=== PATIENT | female | born 1970 | race Caucasian/White ===

== ENCOUNTER → 2016-12-22 | Outpatient (CLI) | payer OTHER ==
--- NOTE | 2016-12-23 08:52 | MM ---
Reason for exam: screening (asymptomatic). Last mammogram was performed 2 years and 5 months ago. History: Patient history of other cancer. Physical Findings: A clinical breast exam by your physician is recommended on an annual basis and results should be correlated with mammographic findings. MG Screening Mammo w CAD Bilateral CC and MLO view(s) were taken. Prior study comparison: August 02, 2014, bilateral MG screening mammo w CAD. June 12, 2011, mammogram, performed at [facility]. The breast tissue is heterogeneously dense. This may lower the sensitivity of mammography. Finding: There are typically benign calcifications in the right breast. No significant changes in finding since August 02, 2014 and June 12, 2011. ASSESSMENT: Benign, BI-RAD 2 RECOMMENDATION: Routine screening mammogram of both breasts in 1 year.
== END | disposition home or self-care (01) ==
LOC: RADMAMWWP 11:17
PROVIDERS: ATTEND Internal Medicine
DX: Z12.31 Encounter for screening mammogram for malignant neoplasm of breast (principal)

== ENCOUNTER → 2017-01-05 | Outpatient (CLI) | payer OTHER ==
--- NOTE | 2017-01-05 09:38 | US ---
EXAMINATION TYPE: US abdomen complete DATE OF EXAM: 01/05/2017 9:22 AM COMPARISON: No previous CLINICAL HISTORY: ABD Pain R10.84. Irregular bowel movements, abdomen pressure EXAM MEASUREMENTS: Liver Length: 17.2 cm Gallbladder Wall: 0.2 cm CBD: 0.4 cm Spleen: 10.1 cm Right Kidney: 11.1 x 3.9 x 4.3 cm Left Kidney: 10.6 x 5.4 x 4.5 cm FINDINGS: The liver is homogenous but measures 17 cm. The intrahepatic portion of the IVC and proximal abdomin al aorta are within normal limits. There is multiple hyperechoic nonshadowing foci within the gallbladder. Common bile duct is unremark able. Pancreas is limited by bowel gas. The visualized portions of the pancreas are homogenous. The spleen is unremarkable. Kidneys are symmetric and free of hydronephrosis. No renal lesions are seen. IMPRESSION: 1. Findings involving the gallbladder likely represent gallbladder polyps. Adherent nonshadowing tiny stones less likely. 2. Borderline to mild hepatomegaly.
== END | disposition home or self-care (01) ==
LOC: RADUSWWP 08:54
PROVIDERS: ATTEND Internal Medicine
DX: R16.0 Hepatomegaly, not elsewhere classified (principal); R10.84 Generalized abdominal pain
CPT/HCPCS: 76700

== ENCOUNTER → 2017-02-04 | Outpatient (CLI) | payer OTHER ==
--- NOTE | 2017-02-05 08:49 | XR ---
EXAMINATION TYPE: XR chest 2V DATE OF EXAM: 02/04/2017 3:57 PM COMPARISON: None TECHNIQUE: PA and lateral views submitted. HISTORY: Cough FINDINGS: The lungs are clear and there is no pneumothorax, pleural effusion, or focal pneumonia. Degenerativ e change of the spine. IMPRESSION: 1. No acute process.
== END | disposition home or self-care (01) ==
LOC: RADXRYALE 15:27
PROVIDERS: ATTEND Internal Medicine
DX: R05 Cough (principal)
CPT/HCPCS: 71020

== ENCOUNTER → 2017-03-12 | Outpatient (CLI) | payer OTHER ==
--- NOTE | 2017-03-12 15:24 | MR ---
MR brain without contrast HISTORY: Migraine without aura, G 43.009 Multiplanar multisequence imaging through the brain No comparisons There is no restricted diffusion. There is no hemorrhage or hydrocephalus. Brain signal is maintained . There are normal vascular flow voids. Cerebellopontine angles, corpus callosum, pituitary, cervical medullary junction are normal. Some mild inflammatory change noted in the temporal bone on the right and maxillary sinuses. The orbits show symmetric appearance. IMPRESSION: No abnormality evident to account for patient's symptoms.
== END | disposition home or self-care (01) ==
LOC: RADMRIMAIN 13:32
PROVIDERS: ATTEND Psychiatry & Neurology Neurology
DX: G43.009 Migraine without aura, not intractable, without status migrainosus (principal)
CPT/HCPCS: 70551

== ENCOUNTER → 2017-05-19 | Outpatient (CLI) | payer OTHER ==
--- NOTE | 2017-05-19 17:00 | US ---
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 TECHNIQUE: Multiple sonographic images of the thyroid gland are obtained. FINDINGS: Right Lobe: 4.9 x 2.0 x 2.1 cm Overall Parenchyma: homogenous Left Lobe: 5.2 x 1.9 x 2.3 cm Overall Parenchyma: heterogeneous Isthmus Thickness: 0.5 cm NODULES RIGHT: # of nodules measured on right: 1 1. 2.0 X 1.3 x 1.7 cm hypoechoic solid nodule at the lower pole with well-defined margins . This n odule is wider than tall and shows intranodular vascularity. Prior size: 1.7 x 1.2 x 1.9 cm LEFT: # of nodules measured on left: 0. The small nodule previously seen on the left side is not seen today. ISTHMUS: # of nodules measured in the isthmus: 1 1. 0.5 X 0.5 x 0.5 cm hypoechoic nodule at the right isthmus with well-defined margins; . This nod ule is wider than tall and shows intranodular vascularity. Prior size: no prior Bilateral neck scanned, no evidence of lymphadenopathy. IMPRESSION: 1. Borderline thyromegaly. 2. Dominant 2.0 x 1.7 cm solid nodule in the right lobe previously measured 1.9 x 1.7 cm, not signifi cantly changed. 3. A new 5 mm nodule in the right thyroid isthmus. This can be followed. 4. The previous nodule on the left side is no longer seen.
--- NOTE | 2017-05-19 17:09 | XR ---
EXAMINATION TYPE: XR knee limited RT DATE OF EXAM: 05/19/2017 COMPARISON: NONE HISTORY: 46-year-old female knee abrasion, pain and swelling since fall 6 days ago. TECHNIQUE: 2 views FINDINGS: There may be mild narrowing of medial compartment joint space. Extensor mechanism is intact. There is anterior soft tissue swelling overlying the patella and quadriceps tendon. No acute fracture, sublux ation, or dislocation. IMPRESSION: 1. Anterior soft tissue contusion overlying the patella and quadriceps tendon. 2. No underlying joint effusion or acute osseous abnormality seen.
== END | disposition home or self-care (01) ==
LOC: RADUSWWP 16:18
PROVIDERS: ATTEND Internal Medicine
DX: E01.0 Iodine-deficiency related diffuse (endemic) goiter (principal); E04.2 Nontoxic multinodular goiter; S80.01XA Contusion of right knee, initial encounter; X58.XXXA Exposure to other specified factors, initial encounter
CPT/HCPCS: 76536

== ENCOUNTER → 2017-06-17 | Outpatient (CLI) | payer OTHER ==
--- NOTE | 2017-06-17 16:39 | BD ---
EXAMINATION TYPE: MG DEXA axial skeleton. DATE OF EXAM: 06/17/2017 COMPARISON: NONE CLINICAL HISTORY: 46-year-old female screening for osteoporosis Height: 5 FT 4 IN Weight: 187 FRAX RISK QUESTIONS: Alcohol (3 or more units per day): NO Family History (Parent hip fracture): NO Glucocorticoids (More than 3mos): NO (Ex: prednisone, prednisolone, methylprednisolone, dexamethasone, and hydrocortisone). History of Fracture in Adulthood: NO Secondary Osteoporosis: 1. Type 1 Diabetes: NO 2. Hyperthyroidism: NO 3. Menopause before 45: YES 4. Malnutrition: NO 5. Chronic liver disease: NO Rheumatoid Arthritis: NO Current Tobacco Use: YES RISK FACTORS HISTORY OF: Family History of Osteoporosis: YES Active: YES Postmenopausal woman: AGE 44 MEDICATIONS: Additional Medications: MIGRAINE MEDS, LOSARTIN, OTC ALLERGY MEDS, Additional History: EXAM MEASUREMENTS: Bone mineral densitometry was performed using the [employer] System. Bone mineral density as measured about the Lumbar spine is: ----- L1-L4(G/cm2): 1.204 T Score Values are as follows: ----- L2: 0.0 ----- L3: 0.6 ----- L4: -0.5 ----- L1-L4: 0.2 BASELINE Bone mineral density about the R hip (g/cm2): 0.909 Bone mineral density about the L hip (g/cm2): 0.973 T Score values are as follows: -----R Neck: -0.9 -----L Neck: -0.5 -----R Total: -0.5 -----L Total: -0.2 BASELINE IMPRESSION: Normal (Values between +1 and -1 indicate normal bone mass). Consider repeating this study in 5 year s or sooner if there is some new clinical indication. NOTE: T-SCORE=SD OF THE YOUNG ADULT MEAN.
== END | disposition home or self-care (01) ==
LOC: RADBDWWP 15:27
PROVIDERS: ATTEND Internal Medicine Rheumatology
DX: Z13.820 Encounter for screening for osteoporosis (principal)
CPT/HCPCS: 77080

== ENCOUNTER 2017-08-07 07:35 | Day surgery (SDC) | payer OTHER ==
[2017-08-06 09:56] VITALS: BMI 32.2
[~2017-08-07 07:35] MED LIST: LACTATED RINGERS 1,000 ML IV SCH; LIDOCAINE 1% 20 ML VIAL (10MG/ML) FOR IV START INTRADERMA PRN
[2017-08-07 07:58] VITALS: TEMP 98.3
[2017-08-07] MEDS ORDERED: LIDOCAINE 1% INJ 10MG/ML (20 ML MDV) ONE (08:06)
[2017-08-07] MEDS ORDERED: PROPOFOL 10 MG/ML 20 ML VIAL IV ONE (08:06)
[2017-08-07] MEDS ORDERED: ONDANSETRON 4 MG/2 ML VIAL ONE (08:06)
--- NOTE | 2017-08-07 08:28 | P.OP ---
Date of Procedure: 08/07/17 Preoperative Diagnosis: Change in bowel habits with the recent constipation no diarrhea. Postoperative Diagnosis: Fairly normal colonoscopy. Probably irritable bowel syndrome. Procedure(s) Performed: Colonoscopy Anesthesia: MAC Surgeon: Gary Ordonez Estimated Blood Loss (ml): 0 Pathology: none sent Condition: stable Disposition: same day Indications for Procedure: Change in bowel habits with recent the constipation to the point where she wouldn't have a bowel movement for a week at a time. Had extensive medical workup that was essentially negative. Since being seen in the office she's had the loose stools almost daily. Abdominal symptoms have mostly resolved the in terms of discomfort . Operative Findings: Fairly normal colonoscopy. No polyps neoplasms or any mucosal abnormalities were found. No evidence of inflammatory condition of the bowel was significant diverticulosis. Description of Procedure: Informed consent was obtained the procedure having being explained to the patient including potential complication particular bleeding and perforation. She understood and agree to proceed. Procedure with the patient in the left lateral position rectal digital examination was normal there no palpable masses. The video colonoscope was inserted transanally and advanced all the way to the cecum which was entered without visualized. Colon was somewhat tortuous. The mucosa were thoroughly examined. No polyps neoplasms or any mucosal abnormalities were found. The suspect patient has irritable bowel syndrome. Recommendation. High-fiber diet the if she gets constipated again. May benefit from a fiber supplement daily to regular regulate her stools. At her age don't think follow-up colonoscopy is indicated for about 10 years or so for screening purposes.
[2017-08-07 08:45] VITALS: PULSE 76
[2017-08-07 08:58] VITALS: BP 140/93; RESP 16
== END 2017-08-07 09:24 | disposition home or self-care (01) ==
LOC: ORWHC2ENDO 07:35
PROVIDERS: ATTEND Surgery
DX: K59.00 Constipation, unspecified (principal); K21.9 Gastro-esophageal reflux disease without esophagitis; Q43.8 Other specified congenital malformations of intestine; I10 Essential (primary) hypertension; F17.210 Nicotine dependence, cigarettes, uncomplicated; Z79.899 Other long term (current) drug therapy; Z88.1 Allergy status to other antibiotic agents
CPT/HCPCS: 45378; J2405; J2001; J2704

== ENCOUNTER 2017-09-24 19:59 | Emergency (ER) | payer OTHER ==
[2017-09-24] MEDS ORDERED: MAG HYDROX/AL HYDROX/SIMETH 30 ML, HYOSCYAMINE ELIXIR 10 ML, CIMETIDINE HCL 300 MG, LID... PO STA ×4 (20:47)
[2017-09-24 21:08] LABS: Appearance,Urine Clear (Clear); Bilirubin,Urine Negative (Negative); Glucose,Urine (UA) Negative (Negative); Ketones,Urine Negative (Negative); Leukocyte Esterase,Urine Negative (Negative); Nitrite,Urine Negative (Negative); PH, Urine 5.5 (5.0-8.0); Protein,Urine Negative (Negative); Specific Gravity,Urine 1.003 (1.001-1.035); UA Billing (MACRO vs. MICRO) CHEM; Urobilinogen,Urine <2.0 mg/dL (<2.0)
[2017-09-24 21:20] LABS: Basophils # (A) 0.1 k/uL (0-0.2); Basophils % (A) 1 %; CH 30.9; CHCM 32.3; Eosinophils # (A) 0.1 k/uL (0-0.7); Eosinophils % (A) 1 %; HDW 2.24; HGB 16.3 gm/dL (11.4-16.0); Luc # (Auto) 0.05; Luc % (Auto) 1; Lymphocytes # (A) 1.9 k/uL (1.0-4.8); Lymphocytes % (A) 20 %; MCH 30.8 pg (25.0-35.0); MCV 96.2 fL (80.0-100.0); Mean Platelet Volume 7.7; Monocytes # (A) 0.5 k/uL (0-1.0); Monocytes % (A) 5 %; Neutrophils # (A) 6.9 k/uL (1.3-7.7); Neutrophils % (A) 73 %; RDW 13.7 % (11.5-15.5); WBC 9.5 k/uL (3.8-10.6); WBC (Perox) 9.49
[2017-09-24 21:21] LABS: ALT 35 U/L (9-52); AST 30 U/L (14-36); Alkaline Phosphatase 68 U/L (38-126); Amylase 58 U/L (30-110); Anion Gap 14 mmol/L; Blood Urea Nitrogen 5 mg/dL (7-17); Calcium 10.5 mg/dL (8.4-10.2); Carbon Dioxide 23 mmol/L (22-30); Chloride 102 mmol/L (98-107); Glucose 83 mg/dL (74-99); Non-African American GFR(MDRD) 53 (>60 ml/min/1.73 sqM); Potassium 4.1 mmol/L (3.5-5.1); Sodium 139 mmol/L (137-145); Total Bilirubin 0.3 mg/dL (0.2-1.3); Total Protein 7.6 g/dL (6.3-8.2)
--- NOTE | 2017-09-24 21:24 | ED ---
General Adult HPI - General Chief complaint: Abdominal Pain Stated complaint: Abd pain Time Seen by Provider: 09/24/17 20:12 Source: patient, RN notes reviewed Mode of arrival: ambulatory Limitations: no limitations - History of Present Illness Initial comments: 46-year-old female presents to the emergency department with a chief complaint of abdominal bloating and acid reflux. She states she's had this for about a 1 year. She's been to her doctor who is never done anything about it. She states that she has sensation going all the way up her throat that it's hard to swallow she has terrible heartburn she feels bloated she states she hasn't really struggling with constipation or diarrhea. She states that she just does not know else to go her doctor shot was seen to her so she is hoping maybe we could figure this out. There has been no fever chills with this. She denies any nausea or vomiting. States that she feels more bloated than pain.Patient denies any recent fever, chills, shortness of breath, chest pain, back pain, abdominal pain, nausea vomiting, numbness or tingling, dysuria or hematuria, constipation or diarrhea, headaches or visual changes, or any other current symptoms. - Related Data Home Medications Medication Instructions Recorded Confirmed [id number] 2 tab PO Q6H PRN 08/06/17 09/24/17 [Excedrin] Cetirizine HCl/Pseudoephedrine 1 tab PO DAILY 08/06/17 09/24/17 [Zyrtec-D Tablet] Losartan Potassium [Cozaar] 50 mg PO DAILY 08/06/17 09/24/17 Biotin 10,000 mcg PO DAILY 09/24/17 09/24/17 Citrucel Tab 1 - 2 tab PO DAILY 09/24/17 09/24/17 Iodine Plus-2 2 tab PO DAILY 09/24/17 09/24/17 Tumeric Curcumin 1 tab PO Q48H 09/24/17 09/24/17 Allergies Allergy/AdvReac Type Severity Reaction Status Date / Time latex Allergy Rash/Hives Verified 09/24/17 20:31 cephalexin [From Keflex] AdvReac "gives me Verified 09/24/17 20:31 bladder infections" [place] And Derivatives AdvReac Nausea & Verified 09/24/17 20:31 Vomiting pain medication Allergy Unknown Uncoded 09/24/17 20:[address] "makes Uncoded 09/24/17 20:18 me very cold,nausea and vomiting,have shakes" Review of Systems ROS Statement: Those systems with pertinent positive or pertinent negative responses have been documented in the HPI. ROS Other: All systems not noted in ROS Statement are negative. Past Medical History Past Medical History: Cancer, Fibromyalgia, GERD/Reflux, Hypertension, Skin Disorder Additional Past Medical History / Comment(s): constipated with bleeding with diarrhea x1 day and bloating,bronchitis,heart valve problem,"clear liquid sores on top of but", May 2017 steroids,Hx cervical CA-frozen procedure remove History of Any Multi-Drug Resistant Organisms: None Reported Past Surgical History: Bladder Surgery, Section, Orthopedic Surgery Additional Past Surgical History / Comment(s): sinus polyps removed,rot cuff Past Anesthesia/Blood Transfusion Reactions: Motion Sickness, Postoperative Nausea & Vomiting (PONV) Additional Past Anesthesia/Blood Transfusion Reaction / Comment(s): states "it makes me very cold,have nausea and vomiting,and have shakes" Past Psychological History: No Psychological Hx Reported Smoking Status: Current every day smoker Past Alcohol Use History: Occasional Past Drug Use History: None Reported - Past Family History Mother Family Medical History: Cancer Additional Family Medical History / Comment(s): cervical CA Father Family Medical History: Cancer Additional Family Medical History / Comment(s): lung General Exam - General Exam Comments Initial Comments: General: The patient is awake and alert, in no distress, and does not appear acutely ill. Eye: Pupils are equal, round and reactive to light, extra-ocular movements are intact; there is normal conjunctiva bilaterally. No signs of icterus. Ears, nose, mouth and throat: There are moist mucous membranes and no oral lesions. Neck: The neck is supple, there is no tenderness. Cardiovascular: There is a regular rate and rhythm. No murmur, rub or gallop is appreciated. Respiratory: Lungs are clear to auscultation, respirations are non-labored, breath sounds are equal. No wheezes, stridor, rales, or rhonchi. Gastrointestinal: Soft, non-distended, non-tender abdomen without masses or organomegaly noted. There is no rebound or guarding present. No CVA tenderness. Bowel sounds are unremarkable. Back: There is no tenderness to palpation in the midline. There is no obvious deformity. No rashes noted. Musculoskeletal: Normal ROM, no tenderness, There is no pedal edema. There is no calf tenderness or swelling. Sensation intact. Pulses equal bilaterally 2+. Neurological: CN II-XII intact, There are no obvious motor or sensory deficits. Coordination appears grossly intact. Speech is normal. Skin: Skin is warm and dry and no rashes or lesions are noted. Psychiatric: Cooperative, appropriate mood & affect, normal judgment. Limitations: no limitations Course Vital Signs 09/24/17 09/24/17 09/24/17 20:18 21:23 21:41 Temperature 97.6 F 98.0 F Pulse Rate 100 86 Respiratory 18 18 Rate Blood Pressure 189/106 179/97 O2 Sat by Pulse 98 97 Oximetry Medical Decision Making - Medical Decision Making 46-year-old female presents for abdominal bloating at this time patient's CAT scan lab work is been reviewed. There is no white count there is suspicion for possible colitis. We discussion follow-up with GI for this. This time we'll not to any antibiotics due to no white count no abdominal pain. At this time we did discuss return for hours all questions. Patient stated that she understood and she is. This plan. She will be discharged. - Lab Data Result diagrams: 09/24/17 20:20 09/24/17 20:20 Lab Results 09/24/17 09/24/17 09/24/17 Range/Units 20:20 20:20 20:20 WBC 9.5 (3.8-10.6) k/uL RBC 5.30 (3.80-5.40) m/uL Hgb 16.3 H (11.4-16.0) gm/dL Hct 51.0 H (34.0-46.0) % MCV 96.2 (80.0-100.0) fL MCH 30.8 (25.0-35.0) pg MCHC 32.0 (31.0-37.0) g/dL RDW 13.7 (11.5-15.5) % Plt Count 414 (150-450) k/uL Neutrophils % 73 % Lymphocytes % 20 % Monocytes % 5 % Eosinophils % 1 % Basophils % 1 % Neutrophils # 6.9 (1.3-7.7) k/uL Lymphocytes # 1.9 (1.0-4.8) k/uL Monocytes # 0.5 (0-1.0) k/uL Eosinophils # 0.1 (0-0.7) k/uL Basophils # 0.1 (0-0.2) k/uL Sodium 139 (137-145) mmol/L Potassium 4.1 (3.5-5.1) mmol/L Chloride 102 (98-107) mmol/L Carbon Dioxide 23 (22-30) mmol/L Anion Gap 14 mmol/L BUN 5 L (7-17) mg/dL Creatinine 1.10 H (0.52-1.04) mg/dL Est GFR (MDRD) Af Amer >60 (>60 ml/min/1.73 sqM) Est GFR (MDRD) Non-Af 53 (>60 ml/min/1.73 sqM) Glucose 83 (74-99) mg/dL Calcium 10.5 H (8.4-10.2) mg/dL Total Bilirubin 0.3 (0.2-1.3) mg/dL AST 30 (14-36) U/L ALT 35 (9-52) U/L Alkaline Phosphatase 68 (38-126) U/L Total Protein 7.6 (6.3-8.2) g/dL Albumin 4.8 (3.5-5.0) g/dL Amylase 58 (30-110) U/L Lipase 87 (23-300) U/L Urine Color Urine Appearance (Clear) Urine pH (5.0-8.0) Ur Specific [place] (1.001-1.035) Urine Protein (Negative) Urine Glucose (UA) (Negative) Urine Ketones (Negative) Urine Blood (Negative) Urine Nitrite (Negative) Urine Bilirubin (Negative) Urine Urobilinogen (<2.0) mg/dL Ur Leukocyte Esterase (Negative) Urine HCG, Qual Not Detected (Not Detectd) 09/24/17 Range/Units 20:20 WBC (3.8-10.6) k/uL RBC (3.80-5.40) m/uL Hgb (11.4-16.0) gm/dL Hct (34.0-46.0) % MCV (80.0-100.0) fL MCH (25.0-35.0) pg MCHC (31.0-37.0) g/dL RDW (11.5-15.5) % Plt Count (150-450) k/uL Neutrophils % % Lymphocytes % % Monocytes % % Eosinophils % % Basophils % % Neutrophils # (1.3-7.7) k/uL Lymphocytes # (1.0-4.8) k/uL Monocytes # (0-1.0) k/uL Eosinophils # (0-0.7) k/uL Basophils # (0-0.2) k/uL Sodium (137-145) mmol/L Potassium (3.5-5.1) mmol/L Chloride (98-107) mmol/L Carbon Dioxide (22-30) mmol/L Anion Gap mmol/L BUN (7-17) mg/dL Creatinine (0.52-1.04) mg/dL Est GFR (MDRD) Af Amer (>60 ml/min/1.73 sqM) Est GFR (MDRD) Non-Af (>60 ml/min/1.73 sqM) Glucose (74-99) mg/dL Calcium (8.4-10.2) mg/dL Total Bilirubin (0.2-1.3) mg/dL AST (14-36) U/L ALT (9-52) U/L Alkaline Phosphatase (38-126) U/L Total Protein (6.3-8.2) g/dL Albumin (3.5-5.0) g/dL Amylase (30-110) U/L Lipase (23-300) U/L Urine Color Colorless Urine Appearance Clear (Clear) Urine pH 5.5 (5.0-8.0) Ur Specific [place] 1.003 (1.001-1.035) Urine Protein Negative (Negative) Urine Glucose (UA) Negative (Negative) Urine Ketones Negative (Negative) Urine Blood Negative (Negative) Urine Nitrite Negative (Negative) Urine Bilirubin Negative (Negative) Urine Urobilinogen <2.0 (<2.0) mg/dL Ur Leukocyte Esterase Negative (Negative) Urine HCG, Qual (Not Detectd) - Radiology Data Radiology results: report reviewed, image reviewed Disposition Clinical Impression: Dehydration, Colitis, Elevated creatine kinase, Hypertension Disposition: HOME SELF-CARE Condition: Stable Instructions: Colitis (ED) Additional Instructions: Please use medication as discussed. Please follow up with family doctor if symptoms have not improved over the next two days. Please return to the emergency room if your symptoms increase or worsen or for any other concerns. Referrals: Lexie Deleon MD [Primary Care Provider] - 1-2 days Kellie Stout MD [STAFF PHYSICIAN] - 1-2 days Time of Disposition: 22:20
[2017-09-24 21:35] VITALS: PULSE 86
--- NOTE | 2017-09-24 21:43 | XR ---
EXAMINATION TYPE: XR abdomen 2V , 3 VIEWS DATE OF EXAM ORDERED: 09/24/2017 HISTORY: Pain. COMPARISON: None. FINDINGS: The lung bases are clear. Within the abdomen, the abdominal gas pattern is within normal limits. There is no evidence of obstru ction or free air. There are multiple air-fluid levels. There are phleboliths within the pelvis. IMPRESSION: FINDINGS MOST CONSISTENT WITH GENERALIZED ILEUS.
--- NOTE | 2017-09-24 22:15 | CT ---
EXAMINATION TYPE: CT abdomen pelvis wo con DATE OF EXAM: 09/24/2017 COMPARISON: NONE HISTORY: Abdominal pain and bloating x [address] DLP: 481.60 mGycm Automated exposure control for dose reduction was used. TECHNIQUE: Helical acquisition of images was performed from the lung bases through the pelvis. FINDINGS: Lung bases are clear of consolidation. There is no pleural effusion. There is some mild linear densit y at the left lung base consistent with scarring or subsegmental atelectasis. Liver and spleen appear normal. Bile ducts are not dilated. Gallbladder appears normal. There is no adrenal mass. Kidneys of normal size and contour. There is no hydronephrosis. There is no retroperitoneal adenopathy. Bladder distends smoothly. Appendix appears normal. There is no sign of a pelvic mass. Uterus is retr overted. I see no bony destructive process. There is mild wall thickening involving the descending co jennifer and the proximal sigmoid colon. There is similar mild thickening of the distal transverse colon. There is no ascites. There is no free air. IMPRESSION: THERE IS MILD COLONIC WALL THICKENING THAT IS SUGGESTIVE OF NONSPECIFIC COLITIS. NO EVIDENCE OF ANY S IGNIFICANT DIVERTICULAR DISEASE.
[2017-09-24] MEDS ORDERED: cloNIDine HCL 0.1 MG TAB PO STA (22:50)
[2017-09-24 23:01] VITALS: RESP 20
[2017-09-24 23:37] VITALS: BP 154/84; TEMP 97.2
== END 2017-09-24 23:37 | disposition home or self-care (01) ==
LOC: EC 19:59
DX: E86.0 Dehydration (principal); R74.8 Abnormal levels of other serum enzymes; I10 Essential (primary) hypertension; F17.200 Nicotine dependence, unspecified, uncomplicated; Z85.41 Personal history of malignant neoplasm of cervix uteri; Z98.890 Other specified postprocedural states; Z88.1 Allergy status to other antibiotic agents; Z91.018 Allergy to other foods; Z88.4 Allergy status to anesthetic agent; Z88.6 Allergy status to analgesic agent; Z91.040 Latex allergy status; Z79.899 Other long term (current) drug therapy
CPT/HCPCS: 36415; 74020; 74176; 80053; 81003; 81025; 82150; 83690; 85025; 99284

== ENCOUNTER → 2017-10-06 | Outpatient (CLI) | payer OTHER ==
[2017-10-06 19:40] LABS: Gliadin AB IgA, Deaminated NEGATIVE (NEGATIVE); Gliadin AB IgG, Deaminated NEGATIVE (NEGATIVE); Gliadin AB IgG, Unit <0.4 U/mL; Tis Transglutaminase IgA Unit <0.5 AI; Tis Transglutaminase IgG Unit <0.8 U/mL
== END | disposition home or self-care (01) ==
LOC: LABWHC1 13:58
PROVIDERS: ATTEND Physician Assistant
DX: R11.0 Nausea (principal); R14.0 Abdominal distension (gaseous)
CPT/HCPCS: 36415; 83516; 86677

== ENCOUNTER 2017-11-03 08:58 | Day surgery (SDC) | payer OTHER ==
[2017-10-29 16:03] VITALS: BMI 29.3
[2017-11-03 09:22] VITALS: RESP 16; TEMP 97.9
[2017-11-03] MEDS: LACTATED RINGERS 1,000 ML IV SCH ×2 (09:22→11:00)
[2017-11-03] MEDS ORDERED: LIDOCAINE 1% INJ 10MG/ML (20 ML MDV) ONE (09:41)
[2017-11-03] MEDS ORDERED: PROPOFOL 10 MG/ML 20 ML VIAL IV ONE (09:41)
--- NOTE | 2017-11-03 10:06 | P.PCN ---
Date of Procedure: 11/03/17 Procedure(s) Performed: Procedure: Esophagogastroduodenoscopy and biopsy. Preoperative diagnosis: Epigastric pain and nausea. Postoperative diagnosis: 1. Small sliding hiatal hernia with low-grade distal esophagitis. 2. Mild antral gastritis. 3. Multiple biopsies obtained from the duodenum, antrum and esophagus. Preparation sedation: Was provided by anesthesia. Brief clinical history: The patient is a 46-year-old female who was evaluated in the office earlier this month regarding symptoms of epigastric pain and nausea. The patient has history of diarrhea, bloating and abdominal pain and has responded to anti-spasmodics with the working diagnosis of irritable bowel syndrome. Currently, she has 1 bowel movement every other day on the average. She has lost 15 pounds over the prior 6 months and has been experiencing dull ache in the epigastric area and intermittent nausea. She has been receiving Protonix and still gets heartburn and acid regurgitation for some time. This evaluation is to assess for esophagitis, complicated reflux disease, peptic ulcer disease or other pathology. Procedure: With the patient on her left lateral decubitus position and after informed consent and adequate sedation, I passed the Olympus-GIF 160 video upper endoscope through the cricopharyngeus down the esophagus. GE junction was around 38 cm from the incisors and there was a small sliding hiatal hernia. The distal esophagus showed a superficial linear erosion consistent with LA grade A distal esophagitis. There were no ulcers or strictures. No Argueta's esophagus. The endoscope was then passed into the stomach which was insufflated with air and inspected in detail including the retroflex view in the cardia. There was some minimal mottling and erythema in the antrum but no ulcers or erosions. Pyloric channel, duodenal bulb, post bulbar area and descending duodenum appeared within normal limits. Because of her symptoms, I obtained biopsies from the duodenum, antrum and esophagus then the endoscope was withdrawn. The patient tolerated the procedure well. Plan: The patient was reassured. She will follow-up with you as planned. She will follow-up in our office next month and we will keep you updated on her progress.
[2017-11-03] MEDS ORDERED: LABETALOL 5 MG/ML VIAL MDV IV ONE (11:04)
[2017-11-03 11:24] VITALS: PULSE 65
[2017-11-03 11:28] VITALS: BP 182/100
== END 2017-11-03 11:58 | disposition home or self-care (01) ==
LOC: ORWHC2ENDO 08:58
DX: K29.50 Unspecified chronic gastritis without bleeding (principal); K21.0 Gastro-esophageal reflux disease with esophagitis; K44.9 Diaphragmatic hernia without obstruction or gangrene; J45.909 Unspecified asthma, uncomplicated; I10 Essential (primary) hypertension; G43.909 Migraine, unspecified, not intractable, without status migrainosus; F17.200 Nicotine dependence, unspecified, uncomplicated; Z88.5 Allergy status to narcotic agent; Z88.1 Allergy status to other antibiotic agents; Z91.040 Latex allergy status; Z88.4 Allergy status to anesthetic agent; Z91.048 Other nonmedicinal substance allergy status; Z79.899 Other long term (current) drug therapy
CPT/HCPCS: 43239; 88305; 88342; J2001; J2704

== ENCOUNTER → 2018-06-07 | Outpatient (CLI) | payer OTHER ==
--- NOTE | 2018-06-07 23:10 | MR ---
EXAMINATION TYPE: MR mtine/lspine wo con DATE OF EXAM: 06/07/2018 COMPARISON: None HISTORY: 47-year-old female Neck/lower back pain, headaches, stiffness, bilateral upper extremity wea kness, left lower extremity radiculopathy TECHNIQUE: Multiplanar, multisequence imaging of the cervical spine followed by the lumbar spine is p erformed without IV contrast. FINDINGS: CERVICAL SPINE: Lobulated mucosal thickening within the sphenoid sinus. No craniocervical junction abnormalities, predental space widening, or prevertebral soft tissue swell ing. 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 Reversal of the normal cervical lordosis with grade 1 anterolisthesis at C7-T1. No suspicious bone marrow replacement though there is some sclerotic Modic type III endplate changes at C5-C6. Moderate to advanced disc/endplate degenerative change particularly from C4 through C7 levels with di sc space narrowing, disc desiccation, and disc osteophyte complex formation. Ligamentum flavum thickening is also present along these levels and there is scattered hypertrophic f acet and uncovertebral joint degenerative change. At C2-C3, there is bulging disc and facet degenerative change. Overall mild narrowing of the spinal c anal without cord contact or cord deformity she. No significant neuroforaminal stenosis. At C3-C4, congenitally fused segment, no significant spinal canal or neuroforaminal stenosis. At C4-C5, broad-based disc osteophyte complex with uncovertebral joint and facet degenerative change. Changes result in mild left neuroforaminal stenosis with moderate spinal canal stenosis. Prominent a butment in ventral flattening of the cervical cord. At C5-C6, broad-based disc osteophyte complex with uncovertebral joint and facet degenerative change. Changes result in severe bilateral neural foraminal stenosis and moderate to severe spinal canal jigna nosis. Abutment and flattening of both the dorsal and ventral cord with mild increased cord signal at this level. At C6-C7, broad-based disc osteophyte complex eccentric toward the left with uncovertebral joint and mild facet arthropathy. Changes result in moderate left neuroforaminal stenosis and overall mild spin al canal stenosis. At C7-T1, facet degenerative change with grade 1 anterolisthesis. No significant spinal canal stenosi s. No significant neuroforaminal stenosis. No prevertebral or paravertebral soft tissue abnormality seen. LUMBAR SPINE: Vertebral body heights are preserved. Grade 1 retrolisthesis at L1-L2 and L2-L3 secondary to hypertrophic facet arthropathy. Moderate disc desiccation L1-L2 and L2-L3 with a diffuse bulging discs. Facet arthropathy greatest in the mid to lower lumbar spine. Conus medullaris is normal. No suspicious bone marrow replacement. There is some mixed Modic type I and type II endplate changes anteriorly at L1-L2. At T12-L1, there is a small right paracentral protrusion without significant canal or foraminal steno sis. At L1-L2, there is diffuse disc bulge with grade 1 retrolisthesis. Minimal inferior foraminal narrowi ng on the left. No spinal canal stenosis. At L2-L3, mild bulging disc and facet degenerative change. Changes result in minimal inferior foramin al narrowing on both sides. There appears to be a left intraforaminal annular fissure that closely ap proaches, and may abut the traversing left L3 nerve root. At L3-L4, facet degenerative change without significant canal or foraminal stenosis. At L4-L5, facet degenerative change without significant canal or foraminal stenosis. At L5-S1, no significant canal or foraminal stenosis. COMBINED IMPRESSION: CERVICAL SPINE: 1. 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 2. CHANGES RESULT IN A MODERATE TO SEVERE SPINAL CANAL STENOSIS AT C5-C6 WITH CORD COMPRESSION AND SOCIATED MILD CORD EDEMA/MYELOPATHIC SIGNAL CHANGE. SEVERE BILATERAL NEUROFORAMINAL STENOSIS AT THIS LEVEL. 3. Moderate overall spinal canal stenosis at C4-C5. There is abutment and flattening of the ventral c ord at this level. 4. Mild overall spinal canal stenosis at C2-C3 and C6-C7. Moderate left neuroforaminal stenosis at C6 -C7. 5. Degenerative grade 1 anterolisthesis at C7-T1. LUMBAR SPINE: 1. Moderate degenerative disc disease especially from L1 through L3 levels with some associated mixed Modic type I and type II endplate change at L1-L2. Grade 1 retrolisthesis at both of these levels. 2. At L2-L3, there is diffuse disc bulge with a left-sided intraforaminal annular fissure. Disc mater ial closely approaches and may abut the traversing left L3 nerve root here. Minimal bilateral neurofo raminal narrowing on both sides at this level. 3. Facet arthropathy mid to lower lumbar spine.
== END | disposition home or self-care (01) ==
LOC: RADMRIMAIN 16:38
PROVIDERS: ATTEND Psychiatry & Neurology Neurology
DX: M48.02 Spinal stenosis, cervical region (principal); M99.71 Connective tissue and disc stenosis of intervertebral foramina of cervical region; M43.12 Spondylolisthesis, cervical region; M50.31 Other cervical disc degeneration, high cervical region; M46.92 Unspecified inflammatory spondylopathy, cervical region; M43.22 Fusion of spine, cervical region; M99.73 Connective tissue and disc stenosis of intervertebral foramina of lumbar region; M51.26 Other intervertebral disc displacement, lumbar region; M43.16 Spondylolisthesis, lumbar region; M51.36 Other intervertebral disc degeneration, lumbar region; M46.96 Unspecified inflammatory spondylopathy, lumbar region
CPT/HCPCS: 72141; 72148

== ENCOUNTER → 2018-09-02 | Outpatient (CLI) | payer OTHER ==
[2018-09-02 14:40] VITALS: BMI 30.7
== END | disposition home or self-care (01) ==
LOC: MNTWWP 13:09
PROVIDERS: ATTEND Psychiatry & Neurology Neurology
DX: E63.9 Nutritional deficiency, unspecified (principal)
CPT/HCPCS: 97802

== ENCOUNTER → 2018-09-02 | Outpatient (CLI) | payer OTHER ==
--- NOTE | 2018-09-02 13:16 | CT ---
EXAMINATION TYPE: DATE OF EXAM: 09/02/2018 COMPARISON: None HISTORY: Cervical spine compression. CT DLP: 1163 mGycm Contrast:Iso 300/100ml Unenhanced followed by contrast enhanced CT of the cervical spine was performed with bone and soft ti ssue window settings submitted. Coronal and sagittal reconstruction is obtained. C2-3: Within normal limits C3-4: Congenital fusion noted. No cervical stenosis or disc herniation identified. C4-5:Moderate degenerative disc space narrowing. Mild circumferential disc bulge greatest posteriorly . Hypertrophic changes posterocentral into the left with left foraminal encroachment noted. No eviden ce for central stenosis. C5-6: Severe degenerative disc space narrowing. Posterior disc bulge with partial encapsulating spur greatest posterior centrally and to the right. There is moderate central stenosis noted and cord cont act identified. Severe right foraminal encroachment and moderate left-sided foraminal encroachment no madyson. C6-7: Moderate degenerative disc space narrowing. Moderate posterior disc bulge with effacement of th e ventral thecal sac. Mild central stenosis difficult to exclude. Degenerative change of the cervical apophyseal joints resulting in moderate left-sided foraminal encroachment. C7-T1: Within normal limits. Alignment is anatomic. No fracture or subluxation. No pathologic enhancement identified. IMPRESSION: 1. Multilevel degenerative disc disease and spondylosis. 2. At least moderately severe canal stenosis at C5-6 with cord contact noted and cord compression anselmo pected. Consider MRI correlation. See above. 3. Varying degrees of foraminal encroachment. 4. Suspect mild central stenosis C6-7.
--- NOTE | 2018-09-02 15:09 | XR ---
EXAMINATION TYPE: XR chest 2V DATE OF EXAM: 09/02/2018 COMPARISON: Prior chest x-ray 02/04/2017 HISTORY: Presurgical testing TECHNIQUE: Frontal and lateral views of the chest are obtained. FINDINGS: There is no focal air space opacity, pleural effusion, or pneumothorax seen. The cardiac silhouette size is within normal limits. The osseous structures are remarkable for postop change th e left shoulder which are stable. Prominent lung volume may be indicative of underlying COPD. The aor ta is dense. IMPRESSION: No acute cardiopulmonary process.
== END | disposition home or self-care (01) ==
LOC: RADCTMAIN 12:19
PROVIDERS: ATTEND Neurological Surgery
DX: M48.02 Spinal stenosis, cervical region (principal); M50.321 Other cervical disc degeneration at C4-C5 level; M47.812 Spondylosis without myelopathy or radiculopathy, cervical region; Z01.818 Encounter for other preprocedural examination
CPT/HCPCS: 71046; 72127

== ENCOUNTER → 2018-11-23 | Outpatient (CLI) | payer OTHER ==
--- NOTE | 2018-11-24 07:58 | CT ---
EXAMINATION TYPE: CT chest w con DATE OF EXAM: 11/23/2018 COMPARISON: Prior chest x-ray September 02, 2018. HISTORY: Cough. CT DLP: 495 mGycm. Automated Exposure Control for Dose Reduction was Utilized. TECHNIQUE: CT scan of the thorax is performed following with IV Contrast, patient injected with 100m l mL of Isovue 300. FINDINGS: LUNGS: Mild bibasilar linear scarring and/or atelectasis is present. There is more focal scarring med ially right middle lobe abutting right heart border axial image 44 No suspicious focal consolidation or groundglass opacity is seen. There is no pleural effusion or pneumothorax seen bilaterally. No concerning parenchymal nodule or mass is present. The tracheobronchial tree is patent. MEDIASTINUM: There are no greater than 1 cm hilar or mediastinal lymph nodes. No cardiomegaly or pe ricardial effusion is seen. Main pulmonary artery measures 3.0 cm in diameter at bifurcation axial im age 25, CT findings suggesting underlying pulmonary artery hypertension. Adjacent ascending aorta melany sures 3.7 cm in diameter. Coronary artery calcification is present which is noted marker for coronary artery disease. There is suspected greater than 1 cm lower pole right thyroid nodule axial image 5. This correlates with ultrasound July 31, 2014. With 2.0 cm solid nodule noted. No significant in terval change in size. OTHER: A roughly 1 cm lesion anterior liver axial image 53 favors thin-walled cyst. Slight scoliotic curvature in the thoracic spine is present with mild multilevel spurring. IMPRESSION: No suspicious acute pulmonary process.
== END | disposition home or self-care (01) ==
LOC: RADCTMAIN 17:11
PROVIDERS: ATTEND Internal Medicine
DX: R05 Cough (principal)
CPT/HCPCS: 71260; Q9967

== ENCOUNTER → 2019-01-25 | Outpatient (CLI) | payer OTHER ==
--- NOTE | 2019-01-26 09:21 | XR ---
EXAMINATION TYPE: XR chest 2V DATE OF EXAM: 01/25/2019 COMPARISON: Prior chest x-ray 09/02/2018 HISTORY: Cough TECHNIQUE: Frontal and lateral views of the chest are obtained. FINDINGS: There are prominent lung volume suggesting underlying COPD. Postop change noted to the left shoulder. There is no focal air space opacity, pleural effusion, or pneumothorax seen. The cardiac silhouette size is within normal limits. The osseous structures are intact. IMPRESSION: No acute cardiopulmonary process.
== END | disposition home or self-care (01) ==
LOC: RADXRYALE 16:26
PROVIDERS: ATTEND Internal Medicine
DX: J98.01 Acute bronchospasm (principal)
CPT/HCPCS: 71046

== ENCOUNTER → 2019-02-08 | Outpatient (CLI) | payer OTHER ==
[2019-02-08 15:23] VITALS: BP 163/113; PULSE 104; RESP 18; TEMP 97.9; BMI 27.9
--- NOTE | 2019-02-08 16:56 | P.HPOB ---
History of Present Illness H&P Date: 02/08/19 Chief Complaint: The patient is here for routine gynecologic exam. This is a 48-year-old within the LMP of 2015. The patient is here to establish with this office. She states her last pelvic exam was about 2 years ago. She states she went through the menopausal change about 4 or 5 years ago. At this time she started having bad hot flashes at night. She has also noticed gradual increase in abdominal bloating without significant weight change. She states her abdomen looks much larger when she compares pictures from now and 4 years ago. She has also been experiencing difficulty sleeping, moodiness, difficulty with concentration, joint swelling, skin changes including dryness, hair loss and weak nails. She denies any postmenopausal bleeding. Review of Systems She denies any significant weight change in the past year, but has been experiencing bloating as in the HPI. She denies respiratory or cardiac problems. G.I.: she has had a long history of constipation. Past Medical History Past Medical History: Asthma, Cancer, Fibromyalgia, GERD/Reflux, Hypertension, Osteoarthritis (OA) Additional Past Medical History / Comment(s): HX MIGRAINES, heart valve problem, COLORBLIND, seasonal allergies. 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 She had cryotherapy of the cervix in the for cervical dysplasia. History of Any Multi-Drug Resistant Organisms: None Reported Past Surgical History: Bladder Surgery, Section, Orthopedic Surgery Additional Past Surgical History / Comment(s): sinus polyps removed as child, left rotator cuff, age 4 bladder sx. Colonoscopy with upper endoscopy 2017. Past Anesthesia/Blood Transfusion Reactions: Motion Sickness, Postoperative Nausea & Vomiting (PONV) Additional Past Anesthesia/Blood Transfusion Reaction / Comment(s): states "it makes me very cold,have nausea and vomiting,and have shakes" Past Psychological History: Anxiety Smoking Status: Current every day smoker (Half to one pack of cigarettes per day.) Past Alcohol Use History: Occasional (8 per month) Additional Past Alcohol Use History / Comment(s): started smoking at age 13, less than 1ppd Past Drug Use History: None Reported Additional History: She is and has not had a partner since approximately 2014. 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 - Past Family History Mother Family Medical History: Cancer Additional Family Medical History / Comment(s): cervical CA Father Family Medical History: Cancer, Hypertension Additional Family Medical History / Comment(s): lung CA. Paternal grandmother had cervical cancer. Medications and Allergies Home Medications Medication Instructions Recorded Confirmed Type [id number] 2 tab PO Q6H PRN 08/06/17 11/03/17 History [Excedrin] Cetirizine HCl/Pseudoephedrine 1 tab PO DAILY 08/06/17 11/03/17 History [Zyrtec-D Tablet] Losartan Potassium [Cozaar] 50 mg PO DAILY 08/06/17 11/03/17 History Tumeric Curcumin 1 tab PO Q48H 09/24/17 11/03/17 History PARoxetine [Paxil] 10 mg PO DAILY 10/29/17 11/03/17 History Pantoprazole Sodium [Protonix] 40 mg PO DAILY 10/29/17 11/03/17 History Trokendi 1 tab PO HS 10/29/17 History Albuterol Inhaler [Ventolin Hfa 1 - 2 puff INHALATION RT-Q6H 02/08/19 02/08/19 History Inhaler] Methylcellulose (with Sugar) 2 gm PO DIRECTED 02/08/19 02/08/19 History [Citrucel Powder] Allergies Allergy/AdvReac Type Severity Reaction Status Date / Time codeine Allergy Hallucinati Verified 02/08/19 15:25 [From Tylenol-Codeine #3] ons latex Allergy Rash/Hives Verified 02/08/19 15:25 cephalexin [From Keflex] AdvReac "gives me Verified 02/08/19 15:25 bladder infections" [employer] Derivatives AdvReac Nausea & Verified 02/08/19 15:[address] "makes Uncoded 02/08/19 15:25 me very cold,nausea and vomiting,have shakes" Exam Vital Signs Temp Pulse Resp BP Pulse Ox 02/08/19 15:14 97.9 F 104 H 18 163/113 98 Intake and Output 02/08/19 02/08/19 02/08/19 06:59 14:59 22:59 Other: Weight 81.647 kg Height 5'4", weight 180 pounds, BMI 30.9. This is a well-developed well-nourished white female who is alert and oriented times 3 in no acute distress. HEENT: Within normal limits. NECK: Supple with a mildly enlarged thyroid gland approximately 1.5 times normal size. There are no focal nodules. CHEST AND LUNGS: Clear to auscultation. HEART: Regular rate and rhythm. BREASTS: Are without mass or discharge. AXILLARY EXAM: Negative for adenopathy. BACK: Negative for CVA tenderness. ABDOMEN: Soft, mildly obese, nontender, without palpable masses. The abdomen is not significantly distended. PELVIC EXAM: Normal external genitalia with minimal atrophy. Cervix and vagina appear normal with minimal atrophy. The cervix is somewhat stenotic. There is no unusual discharge. There is no evidence of prolapse. The uterus is midposition, slightly retroverted, nongravid size and nontender. There are no palpable adnexal masses or tenderness. RECTAL EXAM: rectovaginal exam is negative for mass or tenderness. Stool is positive for occult blood. EXTREMITIES: Nontender. IMPRESSION: 1. 48-year-old menopausal female with normal gynecologic exam. 2. Multiple menopausal type symptoms including hot flashes at night, moodiness, and skin dryness. 3. Abdominal bloating which has gradually increased over the past few years according to the patient. 4. Hemoccult positive stools. The patient denies gross blood per rectum. PLAN: 1. Pap smear was performed. 2. Self breast awareness was discussed with the patient. 3. Screening mammogram was recommended and the order slip was given to the patient for this. 4. Pelvic ultrasound was recommended because of the abdominal bloating. This will be used to evaluate the ovaries. The order slip was given to the patient for this. 5. The patient previously saw Dr. Ordonez for a colonoscopy. She will be referred to the doctors in his previous office for evaluation of the Hemoccult p ositive stools. This group of DrGómez includes Dr. Cohen, Dr. Manzanares, and Dr. eL. 6. We have had a long discussion regarding menopausal symptoms. We've discussed various options including hormone replacement therapy, SSRI medications, and clonidine. She states she is tried some [id number] supplements without success. She states she has been on paroxetine for other reasons and this has not seem to help her vasomotor symptoms. Because of her elevated blood pressure, I think she may be a good candidate to possibly try clonidine. She will discuss this with her primary care doctor, Dr. Deleon. When her blood pressure is under better control, we can consider low-dose HRT. We have discussed possible risks with HRT including the possibility of increased risk for heart attack, stroke, blood clots, and breast cancer. She states she has had thyroid testing done recently either through her primary care doctor and she states the tests were normal. She is also followed by an digital traffic coordinator for her thyroid enlargement. 7. She will also return in one year for her well-woman examine and PRN.
== END ==
LOC: WWCWWP 15:04
PROVIDERS: ATTEND Obstetrics & Gynecology
DX: Z53.9 Procedure and treatment not carried out, unspecified reason (principal)

== ENCOUNTER → 2019-05-16 | Outpatient (CLI) | payer OTHER ==
--- NOTE | 2019-05-16 16:31 | MR ---
EXAMINATION TYPE: MR lumbar spine wo con DATE OF EXAM: 05/16/2019 COMPARISON: 06/07/2018 HISTORY: Back pain TECHNIQUE: T1 and T2 axial and sagittal images of the lumbar spine are submitted. FINDINGS: There is no abnormal signal seen within the visualized spinal cord or paraspinal soft tissu es. There is grade 1 retrolisthesis of L1-L2 and L2-L3 secondary to hypertrophic facet arthropathy. T here is moderate degenerative disc disease L2-3 and moderate to severe changes at L1-L2. 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 At T12-L1 there is moderate degenerative disc disease and central small disc protrusion but no canal stenosis or foraminal encroachment. At L1-2 there is stable retrolisthesis. Annular tear noted with circumferential disc bulging. No edda l stenosis. Mild bilateral foraminal encroachment. Anterior hypertrophic spurring. At L2-3 there is stable retrolisthesis and disc bulging with facet arthropathy. Mild to moderate bila teral foraminal encroachment. No Canal stenosis. At L3-4 there is hypertrophic changes facets. Mild disc desiccation. No disc herniation, canal stenos is or foraminal encroachment. At L4-5 there is more advanced facet arthropathy with central disc bulging and mild bilateral foramin al encroachment. No Canal stenosis. At L5-S1 there is facet arthropathy with no foraminal encroachment, disc herniation or canal stenosis . IMPRESSION: 1. Stable retrolisthesis at L1-L2 and L2-L3 with disc bulging and foraminal encroachment as discussed above. No Canal stenosis. 2. Stable disc small protrusion centrally T12-L1 with no canal stenosis or foraminal encroachment. 3. Central disc bulging and mild bilateral foraminal encroachment with advanced facet arthropathy L4- L5. 4. Multilevel moderate degenerative disc disease.
--- NOTE | 2019-05-16 17:31 | XR ---
EXAMINATION TYPE: XR cervical spine limited DATE OF EXAM: 05/16/2019 COMPARISON: CT scan 09/02/2018 HISTORY: Postop TECHNIQUE: 3 views submitted FINDINGS: There is straightening of the cervical spine with postsurgical changes extending from C4 th rough C6 with anterior fixation. There is some resorption of the anterior margin C5. Appears to be fu marialuisa of C3-C4. Retrolisthesis of C2 on C3 measures 2.7 mm. There is multilevel facet arthropathy. Prevertebral soft tissue structures within normal limits suspect multilevel foraminal encroachment. O dontoid intact. IMPRESSION: 1. Postsurgical changes as discussed above.
== END | disposition home or self-care (01) ==
LOC: RADMRIMAIN 15:41
PROVIDERS: ATTEND Neurological Surgery
DX: M51.16 Intervertebral disc disorders with radiculopathy, lumbar region (principal); M43.16 Spondylolisthesis, lumbar region; M51.25 Other intervertebral disc displacement, thoracolumbar region; M46.92 Unspecified inflammatory spondylopathy, cervical region; Z98.890 Other specified postprocedural states
CPT/HCPCS: 72040; 72148

== ENCOUNTER → 2019-07-07 | Outpatient (CLI) | payer OTHER ==
--- NOTE | 2019-07-08 03:49 | US ---
EXAMINATION TYPE: US thyroid st tissue head/neck DATE OF EXAM: 07/07/2019 COMPARISON: 05/19/2017 CLINICAL HISTORY: 48-year-old female E04.9 goiter. Follow up thyroid nodules TECHNIQUE: Multiple sonographic images of the thyroid gland are obtained. FINDINGS: GLAND SIZE: Right Lobe: 5.4 x 2.0 x 2.7 cm Overall Parenchyma: homogenous Left Lobe: 5.1 x 1.7 x 2.3 cm Overall Parenchyma: homogeneous Isthmus Thickness: 0.6 cm NODULES RIGHT: # of nodules measured on right: 1 1. 2.0 X 1.3 x 1.9 cm hypoechoic solid nodule at the lower pole with well-defined margins. This no dule is wider than tall and shows intranodular vascularity. Prior size: 2.0 x 1.3 x 1.7 cm LEFT: # of nodules measured on left: 0 ISTHMUS: # of nodules measured in the isthmus: 1 1. 0.5 X 0.4 x 0.6 cm hypoechoic solid nodule at the RT isthmus with well-defined margins. This no dule is wider than tall and shows intranodular vascularity. Prior size: 0.5 x 0.5 x 0.5 cm Bilateral neck scanned, no evidence of lymphadenopathy. IMPRESSION: 1. Mild thyromegaly. 2. Relatively stable dominant solid 2.0 x 1.9 cm nodule in the right lobe (versus 2.0 x 1.7 cm, previ ously). 3. Relatively stable 6 x 5 mm solid nodule in the right thyroid isthmus versus 5 x 5 mm, previously.
== END ==
LOC: RADUSWWP 15:52
PROVIDERS: ATTEND Internal Medicine
DX: E01.0 Iodine-deficiency related diffuse (endemic) goiter (principal)
CPT/HCPCS: 76536

== ENCOUNTER → 2019-08-18 | Outpatient (CLI) | payer OTHER ==
--- NOTE | 2019-08-18 14:40 | CT ---
EXAMINATION TYPE: CT cervical spine wo con DATE OF EXAM: 08/18/2019 COMPARISON: CT cervical spine September 02, 2018 HISTORY: cervical myelopathy CT DLP: 430 mGycm. Automated Exposure Control for Dose Reduction was Utilized. TECHNIQUE: CT scan of the cervical spine is obtained without contrast, axial images are obtained, sa gittal and coronal reformatted images are also reviewed. FINDINGS: Cervical spine is visualized in its entirety from C1 through upper thoracic levels, there i s persistent mass effect fusion at C3-C4 level. There is new placement of anterior fusion plate with bony vertebral bridge C4-C6 levels. There is persistent mild to moderate disc space narrowing and mod erate spurring C6-C7 level. Posterior spur from superior C6 vertebra and inferior C4 vertebra effacin g the anterior thecal sac similar to prior. Alignment is stable and straightened. Review of axial images at C2-C3 level shows left-sided vertebral facet degenerative changes without significant neural foraminal narrowing. Axial images at C3-C4 level are thought within normal limits. Axial images at C4-C5 level show uncovertebral facet degenerative changes contributing to moderate to severe left-sided neural foraminal narrowing axial image 58 not significantly changed from prior. Le ft paracentral spur effaces anterolateral thecal sac. New Anterior surgical changes noted. Axial images at the C5-C6 level show surgical changes with moderate bilateral neural foraminal narrow ing due to marginal spurring redemonstrated. Axial images at C6-C7 level shows a left paracentral spurring causing asymmetric mild/moderate left-s ided neural foraminal narrowing and some effacement of the anterior thecal sac. Axial images at C7-T1 level remain within normal limits. Thyroid gland is stable and slightly promine nt. Lung apices are minimally imaged. IMPRESSION: Interval Surgery C4-C6 levels with satisfactory alignment. Additional findings as noted jenny tinoco.
== END | disposition home or self-care (01) ==
LOC: RADCTMAIN 13:08
PROVIDERS: ATTEND Neurological Surgery
DX: M99.71 Connective tissue and disc stenosis of intervertebral foramina of cervical region (principal); M48.02 Spinal stenosis, cervical region; M47.812 Spondylosis without myelopathy or radiculopathy, cervical region; Z98.890 Other specified postprocedural states
CPT/HCPCS: 72125

== ENCOUNTER → 2019-10-04 | Outpatient (CLI) | payer OTHER ==
--- NOTE | 2019-10-04 20:10 | CONS ---
CONSULTATION REASON FOR CONSULTATION: Troubled sleep schedule. This is a 48-year-old female patient. She was having difficulties with sleep quality in general. The patient is going to bed at various times. Sometimes unable to fall asleep and she is waking up at various times either at night or during the day. Her sleep schedule is extremely irregular. Sometimes she goes to bed and she is able to fall asleep and at other times, she is unable to fall asleep. It takes her occasionally more than 30 minutes to fall asleep. She is having periods where she is sleeping also in the morning. She sleeps usually at any time where she is able to generate sleep. She has excessive fatigue and sleepiness during the day. She snores. She quits breathing. She thinks she has a component of insomnia. She wakes up in the middle of night she wakes up in the middle of sleep for urination and she wakes up occasionally gasping for air. She has various medical problems and comorbidities including anxiety and depression, chronic neck pain and back pain. Currently, she is unemployed. No substance abuse. No alcoholism. She is a chronic smoker. There is a total of 35 to 40 pounds weight gain over the past 5 years. She feels very fatigued and sleepy during the day. PAST MEDICAL HISTORY: Hypertension, chronic anxiety and depression, osteoarthritis, irritable bowel syndrome and chronic constipation and chronic acid reflux. PAST SURGICAL HISTORY: Includes cervical spine surgery, , resection of sinus polyps, rotator cuff surgery. ALLERGIES: KEFLEX. OUTPATIENT MEDICATION LIST: Includes: 1. Losartan 50 mg twice a day. 2. Paxil 20 g twice a day. 3. Zyrtec-D. 4. Protonix 40 mg p.o. daily. 5. Meloxicam 25 mg p.o. daily. 6. Albuterol HFA on a p.r.n. basis. 7. Norvasc 5 mg p.o. daily. 8. Excedrin Extra Strength. 9. Dicyclomine 10 mg twice a day. 10.Colace. 11.Polyethylene glycol on a p.r.n. basis. FAMILY HISTORY: Negative for sleep apnea. REVIEW OF SYSTEMS: Fourteen-point review of system was done. Positive findings are mentioned in history of present illness. PHYSICAL EXAMINATION: BP is 112/77, pulse 75, respirations 16, temperature 97.6, saturation 99% on room air. Height is 5 feet 3 inches, weight 194, and [place] score of 29, neck size is at 14 three quarters of an inch, BMI 34.5. General appearance: Calm and comfortable. Head is atraumatic, normocephalic. NECK: Supple. Scar of previous neck surgery over the anterior neck area. LUNGS: Clear to auscultation. HEART: Heart sounds are regular rate and rhythm. Normal S1, S2. No S3, S4. No murmurs. ABDOMEN: Soft, nontender. No organomegaly. EXTREMITIES: No cyanosis or clubbing. Neurologically she is awake, alert, there are no focal neurological deficits. IMPRESSION: 1. Poor sleep hygiene measures with irregular sleep-wake cycle. 2. Loud snoring with witnessed apneas. Consider obstructive sleep apnea. 3. Chronic hypersomnia [place] score of 20. 4. Very poor sleep hygiene measures. 5. Chronic anxiety/depression. 6. Chronic pain. 7. Hypertension. 8. Osteoarthritis. PLAN: We will need to regulate the patient's sleep-wake cycle. The patient was counseled extensively regarding sleep hygiene measures and she has to implement all of these measures. She needs to wake up at a certain time and waking up time was established to be at around 6:00 am. I am confident that if she is able to wake up at a fixed time in the morning, she will be able to go to sleep without major difficulties as long as she does not take any naps during the day. We will do a polysomnogram to assess her sleep quality, look for any sleep apnea and make further adjustments and treatments if needed. SAJAN / GREGORIO: [id number] /
== END | disposition home or self-care (01) ==
LOC: SLEEP 16:20
PROVIDERS: ATTEND Internal Medicine Critical Care Medicine
DX: G47.10 Hypersomnia, unspecified (principal); F32.9 Major depressive disorder, single episode, unspecified; F41.9 Anxiety disorder, unspecified; G89.29 Other chronic pain; I10 Essential (primary) hypertension; M19.90 Unspecified osteoarthritis, unspecified site; Z79.891 Long term (current) use of opiate analgesic; Z79.899 Other long term (current) drug therapy
CPT/HCPCS: 99211

== ENCOUNTER → 2019-10-11 | Outpatient (CLI) | payer OTHER ==
--- NOTE | 2019-10-11 14:14 | XR ---
EXAMINATION TYPE: XR ribs RT w pa chest xray DATE OF EXAM: 10/11/2019 COMPARISON: NONE TECHNIQUE: PA and lateral views submitted. HISTORY: Pain FINDINGS: The lungs are clear and there is no pneumothorax, pleural effusion, or focal pneumonia. Postsurgica l change overlying the cervical spine. Curvature the spine noted. Rib cage intact. IMPRESSION: 1. No acute process.
== END | disposition home or self-care (01) ==
LOC: RADXRYALE 11:43
PROVIDERS: ATTEND Internal Medicine
DX: R07.81 Pleurodynia (principal)

== ENCOUNTER 2019-10-12 12:43 | Emergency (ER) | payer OTHER ==
[2019-10-12] MEDS ORDERED: KETOROLAC 60 MG/2 ML VIAL IVP STA (12:52)
[2019-10-12] MEDS ORDERED: HYDROmorphone 1 MG/ML 1 ML SYRINGE IVP STA (12:53)
--- NOTE | 2019-10-12 12:55 | ED ---
General Adult HPI - General Stated complaint: Rib Pain & Bronchitis Time Seen by Provider: 10/12/19 12:43 Source: patient, RN notes reviewed, old records reviewed - History of Present Illness Initial comments: This is a 48-year-old female presents emergency Department stating she's had bronchitis for a month and she just fine and wished her Augmentin a few days ago. Patient states she does continue to smoke however. Patient states today she was coughing really hard and she felt pain in the right lateral aspect of her ribs and every time she takes deep breath now it hurts very much. Patient states she called EMS because she couldn't hardly take a deep breath at all because of the pain. They gave her Toradol in route and she states it only helped a little. Patient denies any anterior chest pain. Patient denies being short of breath. Patient denies any sputum production anymore. Patient denies any swelling to her legs calf tenderness. - Related Data Home Medications Medication Instructions Recorded Confirmed [id number] 2 tab PO Q6H PRN 08/06/17 02/08/19 [Excedrin] Cetirizine HCl/Pseudoephedrine 1 tab PO DAILY 08/06/17 02/08/19 [Zyrtec-D Tablet] Losartan Potassium [Cozaar] 50 mg PO DAILY 08/06/17 02/08/19 Tumeric Curcumin 1 tab PO Q48H 09/24/17 02/08/19 PARoxetine [Paxil] 10 mg PO DAILY 10/29/17 02/08/19 Pantoprazole Sodium [Protonix] 40 mg PO DAILY 10/29/17 02/08/19 Trokendi 1 tab PO HS 10/29/17 02/08/19 Albuterol Inhaler [Ventolin Hfa 1 - 2 puff INHALATION RT-Q6H 02/08/19 02/08/19 Inhaler] Methylcellulose (with Sugar) 2 gm PO DIRECTED 02/08/19 02/08/19 [Citrucel Powder] Previous Rx's Medication Instructions Recorded metroNIDAZOLE [Flagyl] 500 mg PO BID 7 Days #14 tab 02/15/19 Cyclobenzaprine [Flexeril] 10 mg PO TID #20 tab 10/12/19 Ibuprofen [Motrin] 600 mg PO Q6HR PRN #20 tab 10/12/19 Allergies Allergy/AdvReac Type Severity Reaction Status Date / Time codeine Allergy Hallucinati Verified 02/08/19 15:25 [From Tylenol-Codeine #3] ons latex Allergy Rash/Hives Verified 02/08/19 15:25 cephalexin [From Keflex] AdvReac "gives me Verified 02/08/19 15:25 bladder infections" [place] And Derivatives AdvReac Nausea & Verified 02/08/19 15:[address] "makes Uncoded 02/08/19 15:25 me very cold,nausea and vomiting,have shakes" Review of Systems ROS Statement: Those systems with pertinent positive or pertinent negative responses have been documented in the HPI. ROS Other: All systems not noted in ROS Statement are negative. Past Medical History Past Medical History: Asthma, Cancer, Fibromyalgia, GERD/Reflux, Hypertension, Osteoarthritis (OA) Additional Past Medical History / Comment(s): HX MIGRAINES, heart valve problem, COLORBLIND, seasonal allergies. 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 She had cryotherapy of the cervix in the for cervical dysplasia. History of Any Multi-Drug Resistant Organisms: None Reported Past Surgical History: Bladder Surgery, Section, Orthopedic Surgery Additional Past Surgical History / Comment(s): sinus polyps removed as child, left rotator cuff, age 4 bladder sx. Colonoscopy with upper endoscopy 2017. Past Anesthesia/Blood Transfusion Reactions: Motion Sickness, Postoperative Nausea & Vomiting (PONV) Additional Past Anesthesia/Blood Transfusion Reaction / Comment(s): states "it makes me very cold,have nausea and vomiting,and have shakes" Past Psychological History: Anxiety Smoking Status: Current every day smoker (Half to one pack of cigarettes per day.) Past Alcohol Use History: Occasional (8 per month) Additional Past Alcohol Use History / Comment(s): started smoking at age 13, less than 1ppd Past Drug Use History: None Reported - Past Family History Mother Family Medical History: Cancer Additional Family Medical History / Comment(s): cervical CA Father Family Medical History: Cancer, Hypertension Additional Family Medical History / Comment(s): lung CA. Paternal grandmother had cervical cancer. General Exam - General Exam Comments Initial Comments: GENERAL: Patient is well-developed and well-nourished. Patient is nontoxic and well- hydrated and is in mild distress. ENT: Neck is soft and supple. No significant lymphadenopathy is noted. Oropharynx is clear. Moist mucous membranes. Neck has full range of motion without eliciting any pain. EYES: The sclera were anicteric and conjunctiva were pink and moist. Extraocular movements were intact and pupils were equal round and reactive to light. Eyelids were unremarkable. PULMONARY: Unlabored respirations. Good breath sounds bilaterally. No audible rales rhonchi or wheezing was noted. CARDIOVASCULAR: There is a regular rate and rhythm without any murmurs gallops or rubs. Patient has reproducible pain at about the fourth and fifth rib on the lateral aspect of the right chest wall ABDOMEN: Soft and nontender with normal bowel sounds. SKIN: Skin is clear with no lesions or rashes and otherwise unremarkable. NEUROLOGIC: Patient is alert and oriented x3. Cranial nerves II through XII are grossly intact. Motor and sensory are also intact. Normal speech, volume and content. Symmetrical smile. MUSCULOSKELETAL: Normal extremities with adequate strength and full range of motion. No lower extremity swelling or edema. No calf tenderness. LYMPHATICS: No significant lymphadenopathy is noted PSYCHIATRIC: Normal psychiatric evaluation. 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 Patient received Toradol and Dilaudid emergency department was feeling considerably better. Patient Disposition Clinical Impression: Chest wall pain Disposition: HOME SELF-CARE Condition: Good Instructions (If sedation given, give patient instructions): Chest Wall Pain (ED) Prescriptions: Cyclobenzaprine [Flexeril] 10 mg PO TID #20 tab Ibuprofen [Motrin] 600 mg PO Q6HR PRN #20 tab PRN Reason: For pain Is patient prescribed a controlled substance at d/c from ED?: No Referrals: Lexie Deleon MD [Primary Care Provider] - 1-2 days Time of Disposition: 15:08
--- NOTE | 2019-10-12 13:27 | XR ---
EXAMINATION TYPE: XR chest 2V DATE OF EXAM: 10/12/2019 COMPARISON: NONE HISTORY: Chest pain TECHNIQUE: Frontal and lateral views of the chest are obtained. FINDINGS: There is no focal air space opacity. No evidence for pneumothorax. No pleural effusion. The cardiac silhouette size is within normal limits. The osseous structures are grossly intact. IMPRESSION: 1. No acute cardiopulmonary process.
[2019-10-12 14:51] VITALS: BP 159/98
[2019-10-12 15:44] VITALS: PULSE 61; RESP 16; TEMP 98
== END 2019-10-12 15:43 | disposition home or self-care (01) ==
LOC: EC 12:43
DX: R07.89 Other chest pain (principal); R05 Cough; K21.9 Gastro-esophageal reflux disease without esophagitis; I10 Essential (primary) hypertension; F41.9 Anxiety disorder, unspecified; F17.210 Nicotine dependence, cigarettes, uncomplicated; Z79.899 Other long term (current) drug therapy; Z88.5 Allergy status to narcotic agent; Z91.040 Latex allergy status; Z88.1 Allergy status to other antibiotic agents; Z88.4 Allergy status to anesthetic agent; Z88.8 Allergy status to other drugs, medicaments and biological substances
CPT/HCPCS: 71046; 99284; 96374; 96375; J1885; J1170

== ENCOUNTER → 2019-11-29 | Outpatient (CLI) | payer OTHER ==
--- NOTE | 2019-11-29 18:51 | MR ---
EXAMINATION TYPE: MR brain wo/w con DATE OF EXAM: 11/29/2019 COMPARISON: 03/12/2017 HISTORY: Migraines, R/O MS, compare to MRI 2017 TECHNIQUE: Multiplanar, multisequence images of the brain and brainstem is performed without and with IV contras t, utilizing 9 mL intravenous Gadavist . FINDINGS: Diffusion weighted images demonstrate no evidence of a recent infarct or other diffusion ab normality. Changes of chronic mastoiditis or sinusitis noted. Choroid plexus cysts are noted. White matter: No abnormal signal seen in the visualized white matter. Midline structures demonstrate normal morphology. The craniocervical junction appears within normal limits. Post contrast images demonstrate no abnormal enhancement. Small venous angioma within the ri ght cerebellum suspected incidental. Nodular prominence the M1 segment of the right ends. The dural v enous sinuses appear patent. Changes of mild chronic sinusitis and the globes are intact. IMPRESSION: 1. Nodular prominence the M1 segment of the right MCA recommend MRA [place] to exclude small aneurysm. 2. Trace amount of fluid surrounding the optic nerves most likely is physiologic, correlate with ocul ar exam to exclude papilledema. 3. Chronic sinusitis and right mastoiditis.
== END | disposition home or self-care (01) ==
LOC: RADMRIMAIN 15:22
PROVIDERS: ATTEND Psychiatry & Neurology Neurology
DX: I67.89 Other cerebrovascular disease (principal); G43.009 Migraine without aura, not intractable, without status migrainosus; J32.9 Chronic sinusitis, unspecified; H70.11 Chronic mastoiditis, right ear
CPT/HCPCS: 70553; A9585

== ENCOUNTER → 2019-12-13 | Outpatient (CLI) | payer OTHER ==
--- NOTE | 2019-12-13 22:37 | MR ---
EXAMINATION TYPE: MR angio head wo con DATE OF EXAM: 12/13/2019 COMPARISON: MRI 11/29/2019 HISTORY: Abnormal brain MRI TECHNIQUE: Utilizing 3-D [id number] intracranial MRA of the [place] was performed. FINDINGS: The vertebrobasilar and carotid systems are patent. There is no sizable aneurysm or vascular malform ation. Right vertebral artery is dominant. IMPRESSION: 1. No evidence of vascular malformation or sizable aneurysm.
== END | disposition home or self-care (01) ==
LOC: RADMRIMAIN 16:19
PROVIDERS: ATTEND Psychiatry & Neurology Neurology
DX: R90.89 Other abnormal findings on diagnostic imaging of central nervous system (principal)
CPT/HCPCS: 70544

== ENCOUNTER → 2020-04-06 | Outpatient (CLI) | payer OTHER | END | disposition home or self-care (01) | LOC: LABWHC1 13:32 | PROVIDERS: ATTEND Psychiatry & Neurology Neurology | DX: Z11.59 Encounter for screening for other viral diseases (principal) ==

== ENCOUNTER 2020-04-10 07:56 | Day surgery (SDC) | payer OTHER ==
[2020-04-09 13:54] VITALS: BMI 32.5
[~2020-04-10 07:56] MED LIST changes: -LIDOCAINE 1% 20 ML VIAL (10MG/ML) FOR IV START INTRADERMA PRN
[2020-04-10 08:10] VITALS: TEMP 98
[2020-04-10] MEDS ORDERED: MIDAZOLAM 2 MG/2 ML VIAL ONE (08:38)
--- NOTE | 2020-04-10 08:56 | P.PCN ---
Date of Procedure: 04/10/20 Description of Procedure: Procedure: Lumbar Puncture . Preoperative Diagnoses: rule out M.S Postoperative Diagnosis: rule out M.S Anesthesia: IV sedation with Versed and local Condition: stable. Complications: none. Description of the procedure: Patient was consented in the preoperative area we discussed the risks benefits and alternatives to the procedure. The patient was Brought the patient into the procedure room and she was placed in the left lateral decubitus position. The back was cleansed with iodine 3. Iliac crests were palpated bilaterally and the L2-L3 interspace was palpated in the midline. At that point lidocaine 1% was used to anesthetize the skin, total of 5 mL was used. A 22 gauge spinal needle was advanced until spinal fluid was collected through the needle and a three - way stop cock. Opening pressure was measured and was 22. CSF was obtained and sent off to laboratory for examination. Band-Aid was placed after the procedure the patient was instructed to lay flat for the next couple hours. The patient was discharged from the PACU in stable condition.
[2020-04-10] MEDS ORDERED: IV FLUID CONTINUATION 750 ML IV ONE (09:00)
[2020-04-10 09:30] VITALS: BP 139/88; PULSE 72; RESP 18
[2020-04-10 12:11] LABS: Glucose,CSF 56 mg/dL (40-70); Total Protein,CSF 85 mg/dL (12-60)
[2020-04-10 14:23] LABS: Appearance,CSF Clear; CSF Tube Number 4; CSF Tube Volume 3.5; Red Blood Cell,CSF 0 u/L (0-10)
[2020-04-10 14:24] LABS: Nucleated Cells, CSF 4 u/L (0-5)
== END 2020-04-10 10:10 | disposition home or self-care (01) ==
LOC: ORPAIN 07:56
PROVIDERS: ATTEND Hospitalist
DX: M54.9 Dorsalgia, unspecified (principal); H53.2 Diplopia; M25.50 Pain in unspecified joint; M79.10 Myalgia, unspecified site; Z78.0 Asymptomatic menopausal state; Z88.1 Allergy status to other antibiotic agents
CPT/HCPCS: 88108; 84157; 82945; 89050; 62270; J2250; 99152

== ENCOUNTER → 2020-05-01 | Outpatient (CLI) | payer OTHER ==
[2020-04-26 13:45] VITALS: BMI 32.5
[2020-05-01 12:42] VITALS: BP 147/86; PULSE 73; RESP 16
--- NOTE | 2020-05-01 13:01 | P.PAINCN ---
History of Present Illness - Reason for Consult Consult date: 05/01/20 - History of Present Illness This is 49 years old female with a chronic history of severe neck pain, and headache she is diagnosed with occipital neuralgia, and she was referred to [facility] pain clinic for right-sided occipital nerve block, patient reported that she had headache and neck pain mostly localized on the right side and needs constant increased with any neck movement, she denies any motor or sensory deficit she denies any change in the bowel movement or urination, and she has no fever or night sweats, she is currently on Motrin 600 mg every 8 hours when necessary and Robaxin, and Excedrin headache and she continued to have severe headache Past Medical History Past Medical History: Asthma, Cancer, Fibromyalgia, GERD/Reflux, Hypertension, Osteoarthritis (OA) Additional Past Medical History / Comment(s): 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 states doublevision, blurred vision, decreased peripheral vision History of Any Multi-Drug Resistant Organisms: None Reported Past Surgical History: Bladder Surgery, Section, Orthopedic Surgery Additional Past Surgical History / Comment(s): L/P 04/10/20, sinus polyps removed as child, left rotator cuff, age 4 bladder sx. Colonoscopy with upper endoscopy 2017. states sx on cervical spine Past Anesthesia/Blood Transfusion Reactions: Motion Sickness, Postoperative Nausea & Vomiting (PONV) Additional Past Anesthesia/Blood Transfusion Reaction / Comm: states "it makes me very cold,have nausea and vomiting,and have shakes" Past Psychological History: Anxiety Smoking Status: Current every day smoker Past Alcohol Use History: Rare Additional Past Alcohol Use History / Comment(s): started smoking at age 13, smoke 1/2-1ppd Past Drug Use History: None Reported - Past Family History Mother Family Medical History: Cancer Additional Family Medical History / Comment(s): cervical CA Father Family Medical History: Cancer, Hypertension Additional Family Medical History / Comment(s): lung CA. Paternal grandmother had cervical cancer. Medications and Allergies Home Medications Medication Instructions Recorded Confirmed Type [id number]-[id number] 2 tab PO Q6H PRN 08/06/17 05/01/20 History [Excedrin] Cetirizine HCl/Pseudoephedrine 2 tab PO DAILY 08/06/17 05/01/20 History [Zyrtec-D Tablet] Losartan Potassium [Cozaar] 50 mg PO BID 08/06/17 05/01/20 History Tumeric Curcumin 1 tab PO DAILY 09/24/17 05/01/20 History PARoxetine [Paxil] 40 mg PO DAILY 10/29/17 05/01/20 History Pantoprazole Sodium [Protonix] 40 mg PO DAILY 10/29/17 05/01/20 History Trokendi 125 mg PO HS 10/29/17 05/01/20 History Albuterol Inhaler (Mhu) [Ventolin 1 - 2 puff INHALATION RT-Q6H PRN 02/08/19 05/01/20 History Hfa Inhaler] Albuterol Nebulized [Ventolin 1 - 2 puff INHALATION DAILY PRN 01/23/20 05/01/20 History Nebulized] Guaifen/Phenyleph/Acetaminophn 1 tab PO Q4-6H PRN 01/23/20 05/01/20 History [Tylenol Sinus Severe Caplet] Ibuprofen [Motrin] 600 mg PO DAILY PRN 01/23/20 05/01/20 History Meloxicam [Mobic] 7.5 mg PO DAILY 01/23/20 05/01/20 History amLODIPine [Norvasc] 5 mg PO DAILY 01/23/20 05/01/20 History Methocarbamol [Robaxin] 750 mg PO TID PRN 04/09/20 05/01/20 History acetaZOLAMIDE [acetaZOLAMIDE ER] 500 mg PO BID 05/01/20 05/01/20 History Allergies Allergy/AdvReac Type Severity Reaction Status Date / Time benzonatate Allergy Dyspnea Verified 05/01/20 12:31 [From Tessalon Perles] codeine Allergy Hallucinati Verified 05/01/20 12:31 [From Tylenol-Codeine #3] ons latex Allergy Rash/Hives Verified 05/01/20 12:31 cephalexin [From Keflex] AdvReac "gives me Verified 05/01/20 12:31 bladder infections" [place] And Derivatives AdvReac Nausea & Verified 05/01/20 12:[address] "makes Uncoded 05/01/20 12:31 me very cold,nausea and vomiting,have shakes" Physical Exam Vitals: Vital Signs Pulse Resp BP Pulse Ox 05/01/20 12:35 73 16 147/86 99 REVIEW OF ORGAN SYSTEMS: CONSTITUTIONAL: No fevers or chills. No recent weight loss. EYES: denies troubles with vision. HEENT: No difficulties with hearing. No nosebleeds. No difficulty swallowing. RESPIRATORY: Denies any troubles with breathing or dyspnea on exertion. CARDIOVASCULAR: Denies any chest pain, palpitations, or recent heart attacks. GASTROINTESTINAL: Denies fatty food intolerance. Has change in bowel habits and gas bloat. GENITOURINARY: Denies any blood in urine. Has increased urinary frequency. NEUROLOGICAL: no numbness and tingling along the distal extremities. No seizure disorders ,++ headaches. MUSCULOSKELETAL: Has back pain. SKIN:no skin cancer. No rash. PSYCHIATRIC: Denies current depression or suicidal thoughts. ENDOCRINE: Denies current thyroid disorders. Denies any blood sugar glucose intolerance. HEME/LYMPHATIC: Denies any lumps and bumps around the neck. History of deep venous thrombosis. ALLERGY/IMMUNOLOGY: No immunoglobulin therapy. No immune deficiencies. BREAST: Denies current breast lumps, pain or nipple discharge. Physical Examinations : [place]a : Cooperative , not in acute distress . HEENT : nech : supple , no Lymphadenopathy , normal thyroid size . : eyes no ptosis , no icterus, no photophobia . : ENT normal of hearing , normal oropharynx , no Thrush . Respiratory : Chest clear to auscultations Bilaterally , no wheezing , no Rhonchi . Cardiovascula : regular rate and rhythem , S1 , S2 , no S3 , no S4. Gastrointestina : abdomen soft no tenderness , bowel sounds , no organomegally . Genitourinary : Defferred . neurologic : Cranial nerve II to XII intact , no focal neurological deffecit . psychatric : alert , oriented X 3 , appropriate affect , intact judgment and insight . Lymphatic : no Lymphadenopathy . musculoskeltal : Cervical Spine motor stregnth in the deltoid and biceps, normal right side , normal Left side motor stregnth biceps and the wrist extensors normal right side ,normal left side . motor stregnth in the triceps muscle . normal Right side , normal Left side deep tendon reflexes= normal at the biceps , normal at Brachioradialis , normal at triceps. cervical facet loading test: Positive Bilaterally Spurling test= negaitive bilaterally. Neck distraction test= negative bilaterally. Oni sign= negative bilaterally. Severe tenderness over the right o ccipital nerve location Lumber spine moter stegnth lower extremities ,thigh and legs 5/5 Right side , 5/5 Left side Results Comments: Computed tomography scan of the cervical spine done in 2019= status post cervical fusion with a good alignment MRI of the brain reviewed Assessment and Plan Plan: Assessment and plan=1-[id number]-[id number] occipital neuralgia. Patient could benefit from right-sided occipital nerve block. 2-cervical spondylosis. 3-history of cervical fusion(done more than a year ago ) Patient could benefit from right-sided occipital nerve block, procedure risk and benefits and alternatives discussed with the patient she agreed to proceed Time with Patient: Greater than 30 PQRS Measure Charge Sheet Measure #130: Documentation of Current Meds in Medical Chart: Patient's medications documented in chart Measure #226: Tobacco Use: Screen & Cessation Intervention: Pt screened for tobacco use AND intervention given Measure #111: Pneumonia Vaccination: Pneumococcal vaccine NOT administered or previously given Measure #47: Advance Care Plan: Advance care planning discussed & documented, pt chose/unable to give Measure #412: Opioid Treatment Agreement: No documentation of signed opioid treatment agreement Measure #408: Opioid Therapy Follow-up Evaluation: Patient had NO f/u eval minimum every 3 months during opioid therapy Measure #317: Preventitive Care & Scrn High Bld Press & F/U: Pre-hypertensive or hypertensive BP documented, pt will f/u with PCP Measure #128: Body Mass Index (BMI) Screening & Follow-up: BMI documented ABOVE normal parameters - f/u documented Measure #131: Pain Assessment & Follow-up: Pain positive & plan documented, Follow-up scheduled Measure #431: Unhealthy Alcohol Use Preventative Care & Scrn: Patient not identified as an unhealthy alcohol user PQRS Narrative: Smoking Status Current every day smoker Blood Pressure 147/86 Pain Intensity [Right 8 Posterior Neck] Scale Used Numeric (1 - 10) Hx Alcohol Use (MH) Yes: SOCIAL Home Medications: Ambulatory Orders [id number]-[id number] [Excedrin] 2 tab PO Q6H PRN 08/06/17 Cetirizine HCl/Pseudoephedrine [Zyrtec-D Tablet] 2 tab PO DAILY 08/06/17 Losartan Potassium [Cozaar] 50 mg PO BID 08/06/17 Tumeric Curcumin 1 tab PO DAILY 09/24/17 PARoxetine [Paxil] 40 mg PO DAILY 10/29/17 Pantoprazole Sodium [Protonix] 40 mg PO DAILY 10/29/17 Trokendi 125 mg PO HS 10/29/17 Albuterol Inhaler (Mhu) [Ventolin Hfa Inhaler] 1 - 2 puff INHALATION RT-Q6H PRN 02/08/19 Albuterol Nebulized [Ventolin Nebulized] 1 - 2 puff INHALATION DAILY PRN 01/23/20 Guaifen/Phenyleph/Acetaminophn [Tylenol Sinus Severe Caplet] 1 tab PO Q4-6H PRN 01/23/20 Ibuprofen [Motrin] 600 mg PO DAILY PRN 01/23/20 Meloxicam [Mobic] 7.5 mg PO DAILY 01/23/20 amLODIPine [Norvasc] 5 mg PO DAILY 01/23/20 Methocarbamol [Robaxin] 750 mg PO TID PRN 04/09/20 acetaZOLAMIDE [acetaZOLAMIDE ER] 500 mg PO BID 05/01/20
== END | disposition home or self-care (01) ==
LOC: PNWHC3 12:05
PROVIDERS: ATTEND Specialist
DX: M47.812 Spondylosis without myelopathy or radiculopathy, cervical region (principal); M54.81 Occipital neuralgia; I10 Essential (primary) hypertension; M19.90 Unspecified osteoarthritis, unspecified site; G43.909 Migraine, unspecified, not intractable, without status migrainosus; M79.7 Fibromyalgia; J45.909 Unspecified asthma, uncomplicated; F17.200 Nicotine dependence, unspecified, uncomplicated; Z98.1 Arthrodesis status; Z79.82 Long term (current) use of aspirin; Z79.1 Long term (current) use of non-steroidal anti-inflammatories (NSAID); Z79.899 Other long term (current) drug therapy; Z88.8 Allergy status to other drugs, medicaments and biological substances; Z88.5 Allergy status to narcotic agent; Z91.040 Latex allergy status; Z88.1 Allergy status to other antibiotic agents; Z91.018 Allergy to other foods; Z88.4 Allergy status to anesthetic agent
CPT/HCPCS: 99211

== ENCOUNTER 2020-05-22 09:11 | Day surgery (SDC) | payer OTHER ==
[2020-05-21 09:44] VITALS: BMI 33.5
[2020-05-22 10:35] VITALS: RESP 16; TEMP 98.1
[2020-05-22] MEDS ORDERED: LIDOCAINE 1% (10MG/ML) FOR IV START INTRADERMA ONE (10:40)
[2020-05-22 10:56] LABS: Glucose,Whole Blood 99 mg/dL (75-99)
[2020-05-22] MEDS ORDERED: fentaNYL (PF) 50 MCG/ML 2 ML AMP ONE (10:58)
[2020-05-22] MEDS ORDERED: MIDAZOLAM 2 MG/2 ML VIAL ONE (10:58)
[2020-05-22] MEDS ORDERED: methylPREDNISolone ACETATE 40 MG/ML 1 ML VIAL ONE (10:58)
[2020-05-22] MEDS ORDERED: ROPIVACAINE 5MG/ML 20ML VIAL ONE (10:58)
--- NOTE | 2020-05-22 11:08 | P.PCN ---
Date of Procedure: 05/22/20 Procedure(s) Performed: Preoperative diagnoses= 1- Right Greater occipital neuralgia. 2-cervical spondylosis with cervical facet arthropathy without myelopathy Postoperative diagnoses= same as preoperative diagnosis. Procedure= Right Greater occipital nerve block Anesthesia= moderate sedation with Versed 2 mg and fentanyl 50 micrograms . Estimated blood loss=minimal. Procedure indication= the patient had a history of severe chronic neck pain ,and headache, diagnosed with occipital neuralgia exam was positive for severe tenderness over the occipital nerve bilaterally, she will be a good candidate occipital nerve block, patient failed conservative management Procedure description= the patient was seen and identified in the preoperative holding area, risks and benefits and alternative of the procedure and possible complications discussed with the patient, and he agreed with the preceding, patient signed the consent, an IV was started, and vital signs were monitored and were stable throughout the procedure, patient was placed in the sitting position or table and the neck area was prepped and draped with a sterile fashion, vital signs were closely monitored during the procedure, 25-gauge needle advanced 1 inch lateral to the occipital protuberance on the right side, at the location of the right occipital nerve , then after negative aspiration for heme and CSF and there was no paresthesia during the injection, 6 ml of Robivacaine 0.5% and 80 mg of Depo-Medrol injected after negative aspiration, the needle removed, Patient tolerated the procedure well without any complication, The patient returned to supine position after the back was cleaned and a Band- Aid applied, the patient transported to recovery room in stable condition and he was monitored for 30 minutes before he was discharged home and then patient was reexamined before going home and patient was discharged in stable condition and patient will follow up with the pain clinic in a few weeks.
[2020-05-22] MEDS ORDERED: LACTATED RINGERS 1,000 ML IV ONE (11:13)
[2020-05-22] MEDS ORDERED: IV FLUID CONTINUATION 800 ML IV ONE (11:13)
[2020-05-22 11:35] VITALS: BP 123/73; PULSE 85
== END 2020-05-22 12:35 ==
LOC: ORPAIN 09:11
PROVIDERS: ATTEND Specialist
DX: G89.29 Other chronic pain (principal); M54.81 Occipital neuralgia; M47.812 Spondylosis without myelopathy or radiculopathy, cervical region; E16.2 Hypoglycemia, unspecified; Z78.0 Asymptomatic menopausal state
CPT/HCPCS: 64405; J2250; J1030; J3010; J2795

== ENCOUNTER → 2021-08-15 | Outpatient (CLI) | payer OTHER | END | disposition home or self-care (01) | LOC: LABWHC1 14:00 | PROVIDERS: ATTEND Internal Medicine | DX: Z20.822 Contact with and (suspected) exposure to COVID-19 (principal); R05 Cough | CPT/HCPCS: U0003; U0005 ==

== ENCOUNTER 2023-01-21 16:21 | Inpatient (IN) | payer MEDICAID, OTHER ==
[2023-01-21 20:34] LABS: Amphetamine Screen,Urine Not Detected (NotDetected); Barbiturate Screen,Urine Not Detected (NotDetected); Benzodiazepines Screen,Urine Not Detected (NotDetected); Cocaine Screen,Urine Not Detected (NotDetected); Methadone Screen, Urine Not Detected (NotDetected); Opiate Screen,Urine Not Detected (NotDetected); Oxycodone Screen, Urine Not Detected (NotDetected); Phencyclidine Screen,Urine Not Detected (NotDetected); Tricyclic Antidepressant,Urine Not Detected (NotDetected); Urn Cannabinoid Scrn Not Detected (NotDetected)
[2023-01-21] MEDS ORDERED: ASPIRIN-ACET-CAFF 250-250-65MG 1 EACH TAB PO STA (20:57)
[2023-01-21] MEDS ORDERED: ASPIRIN-ACET-CAFF 250-250-65MG 1 EACH TAB PO ONE (21:45)
[2023-01-22] MEDS ORDERED: haloperidoL 5 MG TAB PO PRN
[2023-01-22] MEDS ORDERED: HALOPERIDOL LACTATE 5 MG/ML 1 ML VIAL IM PRN
[2023-01-22] MEDS ORDERED: LORazepam 2 MG/ML INJ IM PRN
[2023-01-22] MEDS ORDERED: ACETAMINOPHEN TAB 325 MG TAB PO PRN
[2023-01-22] MEDS ORDERED: MAG HYDROX/AL HYDROX/SIMETH 30 ML CUP PO PRN
[2023-01-22] MEDS ORDERED: LORazepam 1 MG TAB PO PRN
--- NOTE | 2023-01-22 00:24 | ED ---
Psych HPI - General Chief Complaint: Psychiatric Symptoms Stated Complaint: Mental Health Time Seen by Provider: 01/21/23 16:30 Source: patient, EMS Mode of arrival: EMS - History of Present Illness Initial Comments: 52-year-old female with past mental history of depression presents emergency room reporting depressive symptoms. She is to follow with a counselor however has not seen them in a year. She has been following with her primary care physician. She was seen in September and placed on Effexor. Today she had a follow-up appointment and told her primary care that this medication was not working for her. She is extremely depressed with thoughts of suicide. No plan. Primary care physician called for an ambulance. [place] that the patient needed to be evaluated in the emergency department for depression. Patient denies any alcohol or drug abuse. She has been taking her medications as directed without improvement. No homicidal ideations. No other alleviating, precipitating or modifying factors - Related Data Home Medications Medication Instructions Recorded Confirmed Cetirizine HCl/Pseudoephedrine 1 tab PO BID 08/06/17 06/01/20 [Zyrtec-D Tablet] Losartan Potassium [Cozaar] 50 mg PO BID 08/06/17 06/01/20 PARoxetine [Paxil] 40 mg PO DAILY 10/29/17 06/01/20 Pantoprazole Sodium [Protonix] 40 mg PO DAILY 10/29/17 06/01/20 Albuterol Inhaler [Ventolin Hfa 1 - 2 puff INHALATION RT-Q6H PRN 02/08/19 06/01/20 Inhaler] Albuterol Nebulized [Ventolin 1 - 2 puff INHALATION DAILY PRN 01/23/20 06/01/20 Nebulized (Accuneb)] Ibuprofen [Motrin] 600 mg PO DAILY PRN 01/23/20 06/01/20 Meloxicam [Mobic] 7.5 mg PO DAILY 01/23/20 06/01/20 amLODIPine [Norvasc] 5 mg PO DAILY 01/23/20 06/01/20 acetaZOLAMIDE [acetaZOLAMIDE ER] 500 mg PO BID 05/01/20 06/01/20 Guaifen/Phenyleph/Acetaminophn 1 each PO DAILY PRN 05/08/20 06/01/20 [Tylenol Sinus Severe Caplet] Methylcellulose (with Sugar) 1 dose PO DAILY PRN 05/08/20 06/01/20 [Citrucel Powder] Aspirin/Acetaminophen/Caffeine 1 each PO DIRECTED PRN 06/01/20 06/01/20 [Excedrin Extra Strength Caplet] Topiramate [Trokendi Xr] 125 mg PO HS 06/01/20 06/01/20 Turmeric Root Extract [Turmeric] 500 mg PO DAILY 06/01/20 06/01/20 Allergies Allergy/AdvReac Type Severity Reaction Status Date / Time benzonatate Allergy Dyspnea Verified 01/21/23 16:31 [From Tessalon Perles] codeine Allergy Hallucinati Verified 01/21/23 16:31 [From Tylenol-Codeine #3] ons latex Allergy Rash/Hives Verified 01/21/23 16:31 cephalexin [From Keflex] AdvReac "gives me Verified 01/21/23 16:31 bladder infections" Garza And Derivatives AdvReac Nausea & Verified 01/21/23 16:[address] "makes Uncoded 01/21/23 16:31 me very cold,nausea and vomiting,have shakes" Review of Systems ROS Statement: Those systems with pertinent positive or pertinent negative responses have been documented in the HPI. ROS Other: All systems not noted in ROS Statement are negative. 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 states doublevision, blurred vision, decreased peripheral vision, HYPOGLYCEMIA History of Any Multi-Drug Resistant Organisms: None Reported Past Surgical History: Bladder Surgery, Section, Orthopedic Surgery Additional Past Surgical History / Comment(s): L/P 04/10/20, sinus polyps removed as child, left rotator cuff, age 4 bladder sx. Colonoscopy with upper endoscopy 2017. states sx on cervical spine Past Anesthesia/Blood Transfusion Reactions: Motion Sickness, Postoperative Nausea & Vomiting (PONV) Additional Past Anesthesia/Blood Transfusion Reaction / Comment(s): states "it makes me very cold,have nausea and vomiting,and have shakes" Past Psychological History: Anxiety, Depression Smoking Status: Current every day smoker Past Alcohol Use History: Rare Past Drug Use History: None Reported - Past Family History Mother Family Medical History: Cancer Additional Family Medical History / Comment(s): cervical CA Father Family Medical History: Cancer, Hypertension Additional Family Medical History / Comment(s): lung CA. Paternal grandmother had cervical cancer. General Exam Limitations: no limitations Course Vital Signs 01/21/23 16:22 Temperature 98.1 F Pulse Rate 67 Respiratory 16 Rate Blood Pressure 164/99 O2 Sat by Pulse 98 Oximetry Medical Decision Making - Medical Decision Making Was pt. sent in by a medical professional or institution (, PRIYANKA, CHILDREN'S COUNSELOR, urgent care, hospital, or prison...) When possible be specific @ -[No] Did you speak to anyone other than the patient for history (EMS, parent, family, police, friend...)? What history was obtained from this source @ -[No] Did you review nursing and triage notes (agree or disagree)? Why? @ -[I reviewed and agree with nursing and triage notes] Were old charts reviewed (outside hosp., previous admission, EMS record, old EKG, old radiological studies, urgent care reports/EKG's, prison records)? Report findings @ -[No old charts were reviewed] Differential Diagnosis (chest pain, altered mental status, abdominal pain women, abdominal pain men, vaginal bleeding, weakness, fever, dyspnea, syncope, headache, dizziness, GI bleed, back pain, seizure, CVA, palpatations, mental health, musculoskeletal)? @ -[not applicable] EKG interpreted by me (3pts min.). @ -[As above] X-rays interpreted by me (1pt min.). @ -[None done] CT interpreted by me (1pt min.). @ -[None done] U/S interpreted by me (1pt. min.). @ -[None done] What testing was considered but not performed or refused? (CT, X-rays, U/S, labs)? Why? @ -[None] What meds were considered but not given or refused? Why? @ -[None] Did you discuss the management of the patient with other professionals (professionals i.e. PRIYANKA Hollingsworth, CHILDREN'S COUNSELOR, lab, RT, psych nurse, social media marketing manager, supervisor wall mirror department, teacher, ship's electronic warfare officer, binder caser)? Give summary @ -[No] Was smoking cessation discussed for >3mins.? @ -[No] Was critical care preformed (if so, how long)? @ -[No] Were there social determinants of health that impacted care today? How? (Homelessness, low income, unemployed, alcoholism, drug addiction, transportation, low edu. Level, literacy, decrease access to med. care, fpc, rehab)? @ -[No] Was there de-escalation of care discussed even if they declined (Discuss DNR or withdrawal of care, Hospice)? DNR status @ -[No] What co-morbidities impacted this encounter? (DM, HTN, Smoking, COPD, CAD, Cancer, CVA, ARF, Chemo, Hep., AIDS, mental health diagnosis, sleep apnea, morbid obesity)? @ -[None] Was patient admitted / discharged? Hospital course, mention meds given and route, prescriptions, significant lab abnormalities, going to OR and other pertinent info. @ -Upon arrival patient was placed into room 11. She is medically clear. She is evaluated by EPS who does feel that the patient needs to be admitted. She does sign herself in. Patient taken to the floor in stable condition Undiagnosed new problem with uncertain prognosis? @ -[No] Drug Therapy requiring intensive monitoring for toxicity (Heparin, Nitro, In sulin, Cardizem)? @ -[No] Were any procedures done? @ -[No] Diagnosis/symptom? @ -[default] Acute, or Chronic, or Acute on Chronic? @ -[default] Uncomplicated (without systemic symptoms) or Complicated (systemic symptoms)? @ -[default] Side effects of treatment? @ -[No] Exacerbation, Progression, or Severe Exacerbation? @ -[No] Poses a threat to life or bodily function? How? (Chest pain, USA, PR, pneumonia, PE, COPD, DKA, ARF, appy, cholecystitis, CVA, Diverticulitis, Homicidal, Suicidal, threat to staff... and all critical care pts) @ -[No] - Lab Data Lab Results 01/21/23 01/21/23 Range/Units 19:40 21:39 Urine Opiates Screen Not Detected (NotDetected) Ur Oxycodone Screen Not Detected (NotDetected) Urine Methadone Screen Not Detected (NotDetected) Ur Propoxyphene Screen Not Detected (NotDetected) Ur Barbiturates Screen Not Detected (NotDetected) U Tricyclic Antidepress Not Detected (NotDetected) Ur Phencyclidine Scrn Not Detected (NotDetected) Ur Amphetamines Screen Not Detected (NotDetected) U Methamphetamines Scrn Not Detected (NotDetected) U Benzodiazepines Scrn Not Detected (NotDetected) Urine Cocaine Screen Not Detected (NotDetected) U Marijuana (THC) Screen Not Detected (NotDetected) Influenza Type A (PCR) Not Detected (Not Detectd) Influenza Type B (PCR) Not Detected (Not Detectd) RSV (PCR) Not Detected (Not Detectd) SARS-CoV-2 (PCR) Not Detected (Not Detectd) Disposition Clinical Impression: Suicidal ideation, Depression Disposition: TRANSFER TO PSYCH HOSP/UNIT Condition: Stable Is patient prescribed a controlled substance at d/c from ED?: No
[2023-01-22 07:15] LABS: Basophils % (A) 1 %; Eosinophils # (A) 0.2 k/uL (0-0.7); Eosinophils % (A) 3 %; HCT 43.7 % (34.0-46.0); HGB 13.8 gm/dL (11.4-16.0); Lymphocytes # (A) 2.2 k/uL (1.0-4.8); Lymphocytes % (A) 36 %; MCH 30.5 pg (25.0-35.0); MCHC 31.7 g/dL (31.0-37.0); MCV 96.2 fL (80.0-100.0); Mean Platelet Volume 7.7; Monocytes # (A) 0.4 k/uL (0-1.0); Monocytes % (A) 6 %; Neutrophils # (A) 3.2 k/uL (1.3-7.7); Neutrophils % (A) 53 %; Platelet Count 382 k/uL (150-450); RBC 4.54 m/uL (3.80-5.40); RDW 12.9 % (11.5-15.5); WBC 6.2 k/uL (3.8-10.6)
[2023-01-22 07:42] LABS: Albumin 4.1 g/dL (3.5-5.0); Calcium 9.1 mg/dL (8.4-10.2); Potassium 3.8 mmol/L (3.5-5.1); Total Bilirubin 0.3 mg/dL (0.2-1.3); Total Protein 6.3 g/dL (6.3-8.2)
[2023-01-22] MEDS ORDERED: MAGNESIUM HYDROXIDE 2,400 MG/10 ML CUP PO PRN (09:00)
[2023-01-22] MEDS ORDERED: NICOTINE 14MG/24HR PATCH TRANSDERM SCH (09:00)
[2023-01-22 09:05] VITALS: PULSE 81; RESP 20; TEMP 98.1
[2023-01-22] MEDS ORDERED: PARoxetine 10 MG TAB PO STA (10:06)
[2023-01-22] MEDS ORDERED: amLODIPine 5 MG TAB PO STA (11:38)
[2023-01-22] MEDS ORDERED: LOSARTAN 50 MG TAB PO STA (11:39)
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
[2023-01-22 13:40] VITALS: BP 132/70
--- NOTE | 2023-01-22 18:12 | P.CONS ---
History of Present Illness - History of Present Illness This is a pleasant 52 years old female who was admitted to the mental health unit for major depression and PTSD. Patient is walking the hallway with no difficulty. He denies chest pain or dyspnea. No change in urine or bowel habits. No fever. No headache weakness numbness or dizziness. Patient is hemodynamically stable Labs including CBC, BMP, liver enzymes were unremarkable. TSH is normal at 1.8 Urine analysis is negative for infection. Urine drug screen is negative Coronavirus , influenza and RSV viruses are not detected Review of Systems Review of systems CONSTITUTIONAL: No fever, no malaise, no fatigue. HEENT: No recent visual problems or hearing problems. Denied any sore throat. CARDIOVASCULAR: No orthopnea, PND, no palpitations, no syncope. PULMONARY: No shortness of breath, no cough, no hemoptysis. GASTROINTESTINAL: No diarrhea, no nausea, no vomiting, no abdominal pain. Normoactive bowel sounds. NEUROLOGICAL: No headaches, no weakness, no numbness. HEMATOLOGICAL: Denies any bleeding or petechiae. GENITOURINARY: Denies any burning micturition, frequency, or urgency. MUSCULOSKELETAL/RHEUMATOLOGICAL: Denies any joint pain, swelling, or any muscle pain. ENDOCRINE: Denies any polyuria or polydipsia. 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 states doublevision, blurred vision, decreased peripheral vision, HYPOGLYCEMIA History of Any Multi-Drug Resistant Organisms: None Reported Past Surgical History: Bladder Surgery, Section, Orthopedic Surgery Additional Past Surgical History / Comment(s): L/P 04/10/20, sinus polyps removed as child, left rotator cuff, age 4 bladder sx. Colonoscopy with upper endoscopy 2017. states sx on cervical spine Past Anesthesia/Blood Transfusion Reactions: Motion Sickness, Postoperative Nausea & Vomiting (PONV) Additional Past Anesthesia/Blood Transfusion Reaction / Comm: states "it makes me very cold,have nausea and vomiting,and have shakes" Past Psychological History: Anxiety, Depression Smoking Status: Current every day smoker Past Alcohol Use History: Rare Past Drug Use History: None Reported - Past Family History Mother Family Medical History: Cancer Additional Family Medical History / Comment(s): cervical CA Father Family Medical History: Cancer, Hypertension Additional Family Medical History / Comment(s): lung CA. Paternal grandmother had cervical cancer. Medications and Allergies Home Medications Medication Instructions Recorded Confirmed Type Losartan Potassium [Cozaar] 50 mg PO BID 08/06/17 01/22/23 History amLODIPine [Norvasc] 5 mg PO DAILY 01/23/20 01/22/23 History Atorvastatin Calcium 40 mg PO HS 01/22/23 01/22/23 History Brimonidine Tartrate [Alphagan P 1 drop BOTH EYES BID 01/22/23 01/22/23 History 0.2% Ophth Soln] Cetirizine HCl 10 mg PO DAILY 01/22/23 01/22/23 History Famotidine [Pepcid] 20 mg PO DAILY 01/22/23 01/22/23 History Montelukast Sodium [Singulair] 10 mg PO HS 01/22/23 01/22/23 History PARoxetine [Paxil] 30 mg PO DAILY 15 Days #45 tab 01/22/23 Rx Pregabalin [Lyrica] 75 mg PO BID 01/22/23 01/22/23 History acetaZOLAMIDE [Diamox] 250 mg PO BID 01/22/23 01/22/23 History cloNIDine HCL [Catapres] 0.1 mg PO BID 3 Days #6 tab 01/22/23 Rx methocarbamoL [Methocarbamol] 500 - 1,000 mg PO TID PRN 01/22/23 01/22/23 History traZODone HCL [Desyrel] 50 mg PO HS PRN 3 Days #3 tab 01/22/23 Rx Allergies Allergy/AdvReac Type Severity Reaction Status Date / Time benzonatate Allergy Dyspnea Verified 01/22/23 08:25 [From Tessalon Perles] codeine Allergy Hallucinati Verified 01/22/23 08:25 [From Tylenol-Codeine #3] ons latex Allergy Rash/Hives Verified 01/22/23 08:25 cephalexin [From Keflex] AdvReac "gives me Verified 01/22/23 08:25 bladder infections" [place] And Derivatives AdvReac Nausea & Verified 01/22/23 08:[address] "makes Uncoded 03/16/23 08:25 me very cold,nausea and vomiting,have shakes" Physical Exam Vitals: Vital Signs Temp Pulse Pulse Resp BP BP Pulse Ox 01/22/23 09:04 98.1 F 81 20 175/93 01/22/23 00:47 98.3 F 82 18 145/94 98 01/21/23 16:22 98.1 F 67 16 164/99 98 Intake and Output 01/21/23 01/22/23 01/22/23 22:59 06:59 14:59 Other: Weight 97.069 kg 99.79 kg GENERAL: The patient is alert and oriented x3, not in any acute distress. Well developed, well nourished. HEENT: Pupils are round and equally reacting to light. EOMI. No scleral icterus. No conjunctival pallor. Normocephalic, atraumatic. No pharyngeal erythema. No thyromegaly. CARDIOVASCULAR: S1 and S2 present. No murmurs, rubs, or gallops. PULMONARY: Chest is clear to auscultation, no wheezing or crackles. ABDOMEN: Soft, nontender, nondistended, normoactive bowel sounds. No palpable organomegaly. MUSCULOSKELETAL: No joint swelling or deformity. EXTREMITIES: No cyanosis, clubbing, or pedal edema. NEUROLOGICAL: Gross neurological examination did not reveal any focal deficits. SKIN: No rashes. no petechiae. Results CBC & Chem 7: 01/22/23 06:49 01/22/23 06:49 Labs: Abnormal Lab Results - Last 24 Hours (Table) 01/22/23 Range/Units 06:49 Chloride 111 H (98-107) mmol/L Carbon Dioxide 21 L (22-30) mmol/L Assessment and Plan Assessment: Major depressive disorder and PTSD Fibromyalgia Asthma, not an active issue History of Fibromyalgia History of GERD/Reflux Hypertension History of Osteoarthritis Current every day smoker Plan: Patient was counseled to quit, she agrees, continue with nicotine patch Management of sac illnesses as per site primary team Continue with same antihypertensive medication Continue with Pepcid Continue with sutures in Continue with eyedrops Continue with statin Patient is medically stable We recommend patient follow up with PC Dr. Pancho Maria in one week after discharge and patient was instructed with the same Thank you for consulting us
[2023-01-22] MEDS ORDERED: cloNIDine HCL 0.1 MG TAB PO SCH (21:00)
[2023-01-23] MEDS ORDERED: PARoxetine 10 MG TAB PO SCH (09:00)
== END 2023-01-22 15:25 | disposition home or self-care (01) | DRG 751 ==
LOC: EC 16:21 → 3MHU 23:02
PROVIDERS: ADMIT Psychiatry & Neurology Psychiatry; ATTEND Psychiatry & Neurology Psychiatry
DX: F33.1 Major depressive disorder, recurrent, moderate (principal); R45.851 Suicidal ideations; F43.10 Post-traumatic stress disorder, unspecified; I10 Essential (primary) hypertension; J30.2 Other seasonal allergic rhinitis; H53.50 Unspecified color vision deficiencies; Z20.822 Contact with and (suspected) exposure to COVID-19; G43.909 Migraine, unspecified, not intractable, without status migrainosus; F17.210 Nicotine dependence, cigarettes, uncomplicated; M19.90 Unspecified osteoarthritis, unspecified site; K21.9 Gastro-esophageal reflux disease without esophagitis; M79.7 Fibromyalgia; Z71.6 Tobacco abuse counseling; Z79.1 Long term (current) use of non-steroidal anti-inflammatories (NSAID); Z82.49 Family history of ischemic heart disease and other diseases of the circulatory system; Z91.52 Personal history of nonsuicidal self-harm; Z88.1 Allergy status to other antibiotic agents; Z91.040 Latex allergy status; Z88.6 Allergy status to analgesic agent; Z91.018 Allergy to other foods; Z79.899 Other long term (current) drug therapy; Z88.5 Allergy status to narcotic agent
CPT/HCPCS: 80053; 80306; 82075; 83036; 84443; 85025; 87636

== ENCOUNTER → 2023-06-17 | Outpatient (CLI) | payer OTHER ==
--- NOTE | 2023-06-17 12:22 | XR ---
EXAMINATION TYPE: XR wrist complete RT DATE OF EXAM: 06/17/2023 CLINICAL HISTORY: pain TECHNIQUE: Frontal, lateral and oblique images of the right wrist are obtained. COMPARISON: None. FINDINGS: There is no acute fracture/dislocation evident. The joint spaces appear within normal limits. The o verlying soft tissue appears unremarkable. IMPRESSION: There is no acute fracture or dislocation seen. ICD 10 NO FRACTURE, INITIAL EVALUATION
--- NOTE | 2023-06-18 15:04 | XR ---
EXAMINATION TYPE: XR hand complete RT DATE OF EXAM: 06/17/2023 12:08 PM INDICATION: Patient age:Female; 52 years old; Reason for study: [id number] RT WRIST PAIN; [facility]. COMPARISON: Right wrist radiograph 06/17/2023 TECHNIQUE: Frontal, lateral and oblique views of the right hand were obtained. FINDINGS: Normal alignment of the visualized joints. No acute osseous pathology is identified. No o sseous erosions. No evidence of soft tissue swelling. IMPRESSION: No acute osseous pathology.
== END | disposition home or self-care (01) ==
LOC: RADXRYALE 11:48
PROVIDERS: ATTEND Internal Medicine
DX: M25.531 Pain in right wrist (principal)